=== PATIENT | female | born 1985 | race Caucasian/White ===

== ENCOUNTER 2019-06-14 19:17 | Outpatient (REF) | payer MEDICAID, SELFPAY ==
[2019-06-14 19:25] LABS: TSH (W/Ref FT4) 1.97 uIU/mL (0.36-3.74)
== END 2019-06-14 19:37 ==
LOC: NCHCN 19:17
PROVIDERS: Visit Provider Nurse Practitioner Family
DX: E05.90 Thyrotoxicosis, unspecified without thyrotoxic crisis or storm (principal)
CPT/HCPCS: 84439; 84443

== ENCOUNTER 2019-08-08 10:46 | Outpatient (CLI) | payer MEDICAID, SELFPAY ==
[2019-08-08 11:06] LABS: HCT 36.8 % (36.0-46.0); HGB 12.4 g/dL (12.0-15.5); Mean Corp. HGB Concentration 33.7 g/dL (32.0-36.0); Mean Corpuscular Hemoglobin 31.2 pg (27.0-33.0); Mean Corpuscular Volume 92.7 fL (80-95); Mean Platelet Volume 12.2 fL (8.0-11.0); Platelet Count 181 x1000/uL (130-400); RBC 3.97 m/cumm (4.00-5.20); RBC Distribution Width 12.9 % (11.7-14.6); White Blood Cell Count 6.42 k/cumm (4.4-10.8)
[2019-08-08 12:22] LABS: ALT 23 U/L (14-59); AST 19 U/L (15-37); Alkaline Phosphatase 69 U/L (46-116); Anion Gap 8.6 mmol/L (3-11); BUN 13 mg/dL (7-18); Bilirubin, Total 0.5 mg/dL (0.2-1.0); CO2 27.4 mmol/L (21.0-32.0); CREATININE 0.91 mg/dL (0.55-1.02); Calcium 8.7 mg/dL (8.5-10.1); Chloride 103 mmol/L (98-107); Glucose 90 mg/dL (74-106); Potassium 4.1 mmol/L (3.5-5.1); Sodium 139 mmol/L (136-145); TSH (W/Ref FT4) 2.85 uIU/mL (0.36-3.74); Total Protein 7.5 g/dL (6.4-8.2)
[2019-08-09 09:47] LABS: Thyroglobulin Antibody <15 U/mL (<=60); Thyroperoxidase Antibody 760 U/mL (<=60)
== END 2019-08-08 11:06 ==
PROVIDERS: PCP Nurse Practitioner Family; Visit Provider Obstetrics & Gynecology Gynecology
DX: Z34.91 Encounter for supervision of normal pregnancy, unspecified, first trimester (principal); E05.00 Thyrotoxicosis with diffuse goiter without thyrotoxic crisis or storm
CPT/HCPCS: 36415; 80053; 85027; 86376; 84443

== ENCOUNTER 2019-09-11 01:45 | Outpatient (CLI) | payer MEDICAID, SELFPAY ==
[2019-09-11 14:21] LABS: Kit/Specimen SENT
[2019-09-11 15:49] LABS: FREE T4 1.07 ng/dL (0.76-1.46); TSH 1.35 uIU/mL (0.36-3.74)
[2019-09-11 17:57] LABS: *AMPHETAMINES SCREEN URINE Negative (Negative); *BARBITURATES SCREEN URINE Negative (Negative); *BENZODIAZEPINES SCREEN URINE Negative (Negative); Cannabinoids THC Negative (Negative); Cocaine Screen,Urine Negative (Negative); METHADONE URINE SCREEN Negative (Negative); OPIATES URINE SCREEN Negative (Negative)
[2019-09-11 18:41] LABS: Tricyclic Antidepressants Negative (Negative)
[2019-09-17 16:23] LABS: Result Summary NEGATIVE; Specimen WB Whole Blood
== END 2019-09-11 02:05 ==
PROVIDERS: Advanced Practice Midwife; PCP Nurse Practitioner Family; Visit Provider Obstetrics & Gynecology
DX: Z34.91 Encounter for supervision of normal pregnancy, unspecified, first trimester (principal); Z36.89 Encounter for other specified antenatal screening; E05.00 Thyrotoxicosis with diffuse goiter without thyrotoxic crisis or storm
CPT/HCPCS: 36415; 80307; 81220; 84439; 84443; 87086

== ENCOUNTER 2019-09-25 15:52 | Outpatient (CLI) | payer MEDICAID, SELFPAY ==
[2019-09-27 14:16] LABS: Chlamydia Result Negative (Negative); GC Result Negative (Negative)
== END 2019-09-25 16:12 ==
LOC: LBN 15:53 → LBO 15:54
PROVIDERS: PCP Nurse Practitioner Family; Visit Provider Advanced Practice Midwife
DX: Z34.91 Encounter for supervision of normal pregnancy, unspecified, first trimester (principal); Z11.3 Encounter for screening for infections with a predominantly sexual mode of transmission; Z36.89 Encounter for other specified antenatal screening
CPT/HCPCS: 86787; 86803; 86900; 86901; 87340; 87389; 87491; 87591; 86762; 86780

== ENCOUNTER 2019-10-02 03:20 | Outpatient (CLI) | payer MEDICAID, SELFPAY ==
[2019-10-02 14:38] LABS: Kit/Specimen SENT
[2019-10-03 09:54] LABS: Hepatitis B Surface Ag Negative (Negative)
[2019-10-03 10:01] LABS: HIV-1/2 Ag & Ab Screen Negative (Negative)
[2019-10-03 10:07] LABS: Hepatitis C Ab w Rflx HCV PCR Negative (Negative)
[2019-10-03 10:39] LABS: Rubella IgG Ab (UVM) Positive (See Note); Varicella IgG Antibody Positive (See Note)
[2019-10-04 10:24] LABS: Syphilis Total Ab w/Reflex Nonreactive (Nonreactive)
== END 2019-10-02 03:40 ==
PROVIDERS: PCP Nurse Practitioner Family; Visit Provider Advanced Practice Midwife
DX: Z34.91 Encounter for supervision of normal pregnancy, unspecified, first trimester (principal); Z11.4 Encounter for screening for human immunodeficiency virus [HIV]; Z11.59 Encounter for screening for other viral diseases
CPT/HCPCS: 36415; 86787; 86803; 86850; 86900; 86901; 87340; 87389; 86762; 86780

== ENCOUNTER 2019-10-28 03:18 | Outpatient (CLI) | payer MEDICAID, SELFPAY ==
[2019-10-28 14:14] LABS: FREE T4 1.13 ng/dL (0.76-1.46)
== END 2019-10-28 03:38 ==
PROVIDERS: PCP Nurse Practitioner Family; Visit Provider Advanced Practice Midwife
DX: E05.00 Thyrotoxicosis with diffuse goiter without thyrotoxic crisis or storm (principal)
CPT/HCPCS: 36415; 84439; 84443

== ENCOUNTER 2019-12-23 01:59 | Outpatient (CLI) | payer MEDICAID, SELFPAY | END 2019-12-23 02:19 | PROVIDERS: PCP Nurse Practitioner Family; Visit Provider Advanced Practice Midwife | DX: E05.00 Thyrotoxicosis with diffuse goiter without thyrotoxic crisis or storm (principal) | CPT/HCPCS: 36415; 84443 ==

== ENCOUNTER 2020-01-23 04:21 | Outpatient (CLI) | payer MEDICAID, SELFPAY ==
[2020-01-23 16:47] LABS: HCT 33.2 % (36.0-46.0); HGB 11.4 g/dL (11.2-15.7); MCH 32.1 pg (27.0-33.0); MCHC 34.3 % (32.0-36.0); MCV 93.5 fL (80-95); MPV 12.6 fL (8.0-11.0); Platelet Count 150 10^3/uL (130-400); RBC 3.55 10^6/uL (3.93-5.22); RDW 12.7 % (11.7-14.6); RDW-SD 43.2 fL; WBC 8.52 10^3/uL (4.4-10.8)
[2020-01-23 18:43] LABS: FREE T4 0.98 ng/dL (0.76-1.46); TSH 0.97 uIU/mL (0.36-3.74)
[2020-01-23 18:54] LABS: T4 14.7 ug/mL (4.7-13.3)
[2020-01-24 16:46] LABS: T3, Total 180 ng/dL (97-169)
[2020-01-29 16:22] LABS: Thyroid Stimulating Immunoglob <1.0 TSI index (<=1.3)
== END 2020-01-23 04:41 ==
PROVIDERS: Internal Medicine Endocrinology, Diabetes & Metabolism; PCP Nurse Practitioner Family; Visit Provider Advanced Practice Midwife
DX: O99.283 Endocrine, nutritional and metabolic diseases complicating pregnancy, third trimester (principal); E05.00 Thyrotoxicosis with diffuse goiter without thyrotoxic crisis or storm; O09.523 Supervision of elderly multigravida, third trimester
CPT/HCPCS: 36415; 85027; 84436; 84439; 84443; 84445; 84480

== ENCOUNTER 2020-02-05 03:49 | Outpatient (CLI) | payer MEDICAID, SELFPAY ==
[2020-02-05 11:42] LABS: Glucose,1 Hr (Glucola) 75 mg/dL (80-140)
== END 2020-02-05 04:09 ==
PROVIDERS: Advanced Practice Midwife; PCP Nurse Practitioner Family; Visit Provider Advanced Practice Midwife
DX: Z34.90 Encounter for supervision of normal pregnancy, unspecified, unspecified trimester (principal)
CPT/HCPCS: 36415; 82950

== ENCOUNTER 2020-02-14 02:01 | Outpatient (CLI) | payer MEDICAID, SELFPAY ==
[2020-02-14 18:09] LABS: FREE T4 1.11 ng/dL (0.76-1.46); TSH 1.13 uIU/mL (0.36-3.74)
== END 2020-02-14 02:21 ==
PROVIDERS: Advanced Practice Midwife; PCP Nurse Practitioner Family; Visit Provider Internal Medicine Endocrinology, Diabetes & Metabolism
DX: E05.00 Thyrotoxicosis with diffuse goiter without thyrotoxic crisis or storm (principal)
CPT/HCPCS: 36415; 84439; 84443

== ENCOUNTER 2020-02-21 04:47 | Outpatient (CLI) | payer MEDICAID, SELFPAY ==
--- NOTE | 2020-02-21 08:15 | DI.US_ITS ---
EXAM: US OB VIVEK WEIGHT CLINICAL HISTORY: growth, assess for appropriate neck flexion,graves disease. TECHNIQUE: Transabdominal obstetrical ultrasound performed. COMPARISON: No exams were available for comparison FINDINGS:: Number of fetuses: One. position: Noel breech Placental location: Anterior. No evidence of previa. BIOMETRIC DATA: BPD: 83 mm = 33+3 weeks HC: 302 mm = 33+4 weeks AC: 282mm = 32+1 weeks FL: 61 mm = 31+4 weeks EFW: 1929 Gms = 33% Composite Age: 30 2+5 weeks EDC: 12 April 2020 Heart Rate: 137BPM Amniotic fluid index: 14.1 cm. Amount of fluid is within normal limits. Normal neck flexion is noted. IMPRESSION: size and weight are within the expected range. Appropriate neck flexion is noted. DATA REPOSITORY:
== END 2020-02-21 05:07 ==
PROVIDERS: PCP Nurse Practitioner Family; Visit Provider Advanced Practice Midwife
DX: E05.00 Thyrotoxicosis with diffuse goiter without thyrotoxic crisis or storm (principal); Z34.93 Encounter for supervision of normal pregnancy, unspecified, third trimester
CPT/HCPCS: 76816

== ENCOUNTER 2020-02-28 02:28 | Outpatient (CLI) | payer MEDICAID, SELFPAY ==
[2020-02-28 17:26] LABS: FREE T4 1.06 ng/dL (0.76-1.46); TSH 1.32 uIU/mL (0.36-3.74)
== END 2020-02-28 02:48 ==
PROVIDERS: PCP Nurse Practitioner Family; Visit Provider Internal Medicine Endocrinology, Diabetes & Metabolism
DX: E05.00 Thyrotoxicosis with diffuse goiter without thyrotoxic crisis or storm (principal)
CPT/HCPCS: 36415; 84439; 84443

== ENCOUNTER 2020-03-18 02:45 | Outpatient (CLI) | payer MEDICAID, SELFPAY ==
--- NOTE | 2020-03-18 07:45 | DI.US_ITS ---
EXAM: US OB VIVEK WEIGHT CLINICAL HISTORY: serial growth r/o goiter of neck r/t graveS DISEASE TECHNIQUE: Ultrasound performed using standard protocol. COMPARISON: US US OB VIVEK WEIGHT from 02/21/2020 FINDINGS: Ob ultrasound was performed utilizing 3rd trimester protocol. The placenta is anterior with no evide nce of placenta previa. Fetus is in breech presentation. biometry is consistent with gestational age of 35 weeks 2 days and EDC of April 20. The estimated weight is 2577 grams which is at the 23rd percentile for predicted gestational ag e. heart rate is 139 BPM. There is visually a normal quantity of amniotic fluid and the VIVEK is 9. IMPRESSION: DATA REPOSITORY:
== END 2020-03-18 03:05 ==
PROVIDERS: PCP Nurse Practitioner Family; Visit Provider Advanced Practice Midwife
DX: Z34.93 Encounter for supervision of normal pregnancy, unspecified, third trimester (principal)
CPT/HCPCS: 76816

== ENCOUNTER 2020-03-18 20:02 | Outpatient (REF) | payer MEDICAID, SELFPAY ==
[2020-03-18 20:33] LABS: *AMPHETAMINES SCREEN URINE Negative (Negative); *BARBITURATES SCREEN URINE Negative (Negative); *BENZODIAZEPINES SCREEN URINE Negative (Negative); Cannabinoids THC Negative (Negative); Cocaine Screen,Urine Negative (Negative); METHADONE URINE SCREEN Negative (Negative); OPIATES URINE SCREEN Negative (Negative)
[2020-03-18 20:34] LABS: Tricyclic Antidepressants Negative (Negative)
[2020-03-24 08:27] LABS: Buprenorphine Negative; Norbuprenorphine Negative
== END 2020-03-18 20:22 ==
LOC: LBN 20:02
PROVIDERS: PCP Nurse Practitioner Family; Visit Provider Advanced Practice Midwife
DX: Z34.93 Encounter for supervision of normal pregnancy, unspecified, third trimester (principal)
CPT/HCPCS: 80307; 87081

== ENCOUNTER 2020-03-25 03:06 | Outpatient (CLI) | payer MEDICAID, SELFPAY ==
[2020-03-25 15:51] LABS: FREE T4 0.95 ng/dL (0.76-1.46); TSH 1.72 uIU/mL (0.36-3.74)
== END 2020-03-25 03:26 ==
PROVIDERS: PCP Nurse Practitioner Family
DX: E05.00 Thyrotoxicosis with diffuse goiter without thyrotoxic crisis or storm (principal)
CPT/HCPCS: 36415; 84439; 84443

== ENCOUNTER 2020-04-07 11:00 | Observation (INO) | payer MEDICAID, SELFPAY ==
--- NOTE | 2020-04-02 12:26 | HPE_ITS ---
Date of service: 04/02/20 Time of Service: 12:27 Assessment and Plan Assessment and plan (1) : Status: Acute (2) Graves' disease: Status: Chronic (3) Breech presentation of fetus: Status: Acute Assessment and plan: Patient is a 6 para 3 with 2 previous spontaneous miscarriages. She has a known enrique breech presentation. Risk benefits and alternatives of external cephalic version including risk of distress or bradycardia need for emergent versus primary breech delivery at term in spontaneous labor versus primary section for breech presentation were all explained to the patient full informed consent was obtained for attempt at external cephalic version. She will present to the center on April 07 while she will have IV started, laboratory studies, and terbutaline given for uterine relaxation. Attempted external cephalic version was performed at that time. If she were to convert spontaneously prior to, no version will be necessary. If version is successful, she will be allowed to progress into spontaneous labor. History of Present Illness History of Present Illness Chief Complaint: Breech presentation Narrative: Patient is a 34-year-old female with 3 previous vaginal deliveries who has had care at [facility] with the contracting executive group. She has a known breech presentation. She has been counseled extensively on breech presentation, possibility of external cephalic version, vaginal breech delivery, and section. Patient opts at this point for attempted external cephalic version. She has had days to weeks to ponder her options and opportunities and ask questions regarding procedure, complications, and risks. Patient understands that preference would be for conversion to vertex presentation and delivery on the center. She is, however a candidate for vaginal breech delivery, though this would need to be attempted in the OR with a double set up in case of obstetric complication. For the patient this is a suboptimal delivery scenario. Review of Systems All systems reviewed & are unremarkable except as noted in HPI and below Constitutional Constitutional: Reports system reviewed and no additional complaints, except as documented Cardiovascular Cardiovascular: Reports system reviewed and no additional complaints, except as documented Respiratory Respiratory: Reports system reviewed and no additional complaints, except as documented Gastrointestinal Gastrointestinal: Reports system reviewed and no additional complaints, except as documented Genitourinary Genitourinary: Reports system reviewed and no additional complaints, except as documented and Reports as per HPI Musculoskeletal Musculoskeletal: Reports system reviewed and no additional complaints, except as documented Integumentary/Breasts Skin/Breast: Reports system reviewed and no additional complaints, except as documented Neurologic Neurologic: Reports system reviewed and no additional complaints, except as documented Psychiatric Psychiatric: Reports system reviewed and no additional complaints, except as documented [facility] Medical History (Updated 03/18/20 @ 15:17 by Bettina Henriquez) 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 2015. Rx with Methimazole 5mg/day.(Usual dose 30mg/day) TSH ok with current dose. Previous thyroid u/s: no cancerous nodules. 08/08/19. Change to PTU 50mg/day (usual dose 100mg/TID) Recheck TSH in 4w. Antibody testing: Lactose intolerance Rotator cuff arthropathy of right shoulder injury and PT 05/2019 Surgical History (Updated 08/08/19 @ 20:57 by Lali Hu MD) History of ankle surgery 2009 Hx of tonsillectomy 1989 Family History (Updated 09/11/19 @ 15:12 by Lea Law CNM) Father No problems noted. Mother Diabetes pre-diabetic Hypertension Maternal Grandmother Diabetes Type 2 Sister Arrhythmia heart ablation Aunt Breast cancer Pos. BRCA Several others in father's family pos for BRCA Social History (Updated 08/08/19 @ 21:01 by Lali Hu MD) Smoking/Tobacco Use Status: Former Tobacco Use Tobacco: How many years used: 3 Quit status: has quit before Smoking risk assessment performed?: Yes Drug use: Never Household members: spouse, children and other Details: Irene-Wilber, [id number] dad. 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 Date GA/Weeks # Outcome Route Wgt Sex Labor Lgth Anesthes ia Location [facility] 09/28/05 39 No Successful 7 lb 5 oz Male 28 [facility] 08/21/07 Unsuccessful 10/22/08 39 No Successful vaginal 7 lb 5 oz Male 20 [facility] 08/22/11 Unsuccessful 02/16/13 41 No Successful vaginal 6 lb 10 oz Female 8 hrs home , [place] Delivery Date: 09/28/05 Pitocin augmentation Lea Law Delivery Date: 08/21/07 ERUM Lea Law Delivery Date: 10/22/08 No notes to display Delivery Date: 08/22/11 ERUM ChavarriaLea kay Delivery Date: 02/16/13 Home , no complications Lea Law Meds Home Medications and Allergies Home Medications Medication Instructions Recorded Confirmed Type cholecalciferol (vitamin D3) 25 25 mcg PO DAILY 08/08/19 04/01/20 History mcg (1,000 unit) capsule docosahexaenoic acid 200 mg capsule mg PO 08/08/19 04/01/20 History folic acid 400 mcg tablet 0.4 mg PO DAILY 08/08/19 04/01/20 History prenat.vits,rubio,zgs-[id number]-ftbrt 1 tab PO DAILY 10/02/19 04/01/20 History Boostrix Tdap 2.5 Lf unit-8 mcg-5 0.5 ml IM ONCE #0.5 ml NS 01/23/20 Clinic Lf/0.5 mL intramuscular syringe blood builder See Rx Instructions .ROUTE 03/18/20 04/01/20 Rx .COMPLEX #60 tab Allergies Allergy/AdvReac Type Severity Reaction Status Date / Time latex Allergy Severe hives Verified 04/01/20 14:11 adhesive tape Allergy Intermediate rash Verified 04/01/20 14:11 coffee (Coffea arabica) Allergy Mild Unverified 04/01/20 14:11 carrageenan AdvReac Intermediate Unverified 04/01/20 14:11 gluten AdvReac Intermediate Verified 04/01/20 14:11 avocado AdvReac Mild Unverified 04/01/20 14:11 banana AdvReac Mild Unverified 04/01/20 14:11 marielle AdvReac Mild Unverified 04/01/20 14:11 tomato AdvReac Mild Unverified 04/01/20 14:11 dairy AdvReac Severe Uncoded 04/01/20 14:11 Exam Const General: cooperative, healthy appearing, comfortable and no acute distress Nutritional Appearance: average body habitus Orientation: alert and oriented x3 Eyes General: appearance normal, both eyes and all related structures Resp Effort & Inspection: normal respiratory effort and no audible wheezes Cardio Rate: regular rate GI Inspection: normal to inspection Palpation: soft and no guarding Other: Breech presentation by Fadi's, confirmed with U/S Skin General skin exam: no rashes or lesions noted Neuro General: patient alert and patient oriented x3 Cranial Nerves: CN's II-XI intact bilaterally Cognition: normal cognition Speech: speech normal Extrem General: no clubbing, cyanosis or edema COVID-19 Screening Have you, or household traveled for leisure in last 14 days?: NO
[2020-04-07 11:10] VITALS: TEMP 36.8
[2020-04-07 11:20] VITALS: BP 158/73; PULSE 75; RESP 18; TEMP 36.8
[2020-04-07 12:15] LABS: HCT 35.5 % (36.0-46.0); HGB 11.8 g/dL (11.2-15.7); MCH 31.6 pg (27.0-33.0); MCHC 33.2 % (32.0-36.0); MCV 95.2 fL (80-95); MPV 12.9 fL (8.0-11.0); Platelet Count 154 10^3/uL (130-400); RBC 3.73 10^6/uL (3.93-5.22); RDW-SD 47.7 fL; WBC 9.28 10^3/uL (4.4-10.8)
[2020-04-07] MEDS: Terbutaline 1 MG/ML VIAL 0.25 MG SC (12:19)
[2020-04-07 13:29] VITALS: BP 158/73; PULSE 75
--- NOTE | 2020-04-07 15:04 | PROC.BLANK_ITS ---
Date of service: 04/07/20 Time of Service: 15:04 Version Note Version Note DATE OF PROCEDURE: 04/07/20 PRE-OP DIAGNOSES: Term , unstable lie POST-OP DIAGNOSES: same PROCEDURE: Patient is a 34-year-old female who is been having care with the clinical review specialist group and [facility]. She has had 3 previous successful vaginal deliveries. She is at term. She has a known breech presentation. We have had multiple lengthy conversations regarding the potential for external cephalic version. Full informed consent was obtained after risks, benefits and alternatives of the procedure were explained to the patient. She had an IV started and received 1 dose of terbutaline for uterine relaxation. Ultrasound had been previously performed which confirmed baby in the breech to transverse position with the vertex at the right upper to mid quadrant. With ultrasound guidance and gentle upward traction of the breech from the pelvis and initially counterclockwise then, clockwise attempt at external cephalic version. Baby alternated from breech to transverse back to transverse to breech presentation without conversion to cephalic. Both patient and baby tolerated the attempts at external cephalic version without difficulty. Nonstress test performed prior to and after procedure for both reassuring category 1 strip. In light of the failed external cephalic version attempt, approximately 30 minutes of time was spent discussing the fact that patient has an unstable lie and is not a good vaginal delivery candidate at this present time. We also had a long conversation regarding section, its risks, benefits, and alternatives along with the appropriate anesthesia necessary. Patient is somewhat overwhelmed by these conversations and requests more time to consider her options. We did discuss the fact that with an unstable lie spontaneous rupture of membranes could be problematic and lead to cord prolapse. Patient and her partner do understand these risks. She will be seen back on the center on Monday for further conversation she does understand that if she is having labor symptoms she should present to the center sooner rather than waiting at home. SURGEON: Pauline Damon Assisting Surgeon: Lali Hu Complications: None Patient was transported to: no change Patient's condition: stable Procedure Description: As above Pre/Post Procedure NST Pre-Procedure NST Time on Monitor: 72 Patient States Movement: Present FHR Baseline: 135 Variability: Moderate 6-25 bpm Decelerations: None NST Results: Reactive Post Procedure NST Time on Monitor: 64 Patient States Movement: Present Variability: Moderate 6-25 bpm Decelerations: None NST Results: Reactive
== END 2020-04-07 15:02 | disposition home or self-care (01) ==
PROVIDERS: Admitting Provider Obstetrics & Gynecology; PCP Nurse Practitioner Family; Visit Provider Obstetrics & Gynecology
DX: O32.1XX0 Maternal care for breech presentation, not applicable or unspecified (principal); O09.523 Supervision of elderly multigravida, third trimester; Z3A.39 39 weeks gestation of pregnancy
CPT/HCPCS: 36415; 59025; 59412; 85027; 86850; 86900; 86901; 96372; 99222; G0378

== ENCOUNTER 2020-04-08 22:43 | Inpatient (IN) | payer MEDICAID, SELFPAY ==
[2020-04-08] VITALS (7 sets, daily range): BP systolic 112–125; BP diastolic 62–87; PULSE 72–99; RESP 18–22; TEMP 36.6
--- NOTE | 2020-04-08 23:15 | W.OBDELIVERY ---
Date of service: 04/08/20 Time of Service: 23:15 OB Labor/ Delivery Information Baby A Delivery Delivery Method: Spontaneaous Presentation: Noel Breech Cord Description-Baby A: Nuchal Cord (x1) Amniotic Fluid: Clear Delivery Outcome: Liveborn Providers Doctor: Charbel Ozuna Nurse Tooling Engineering Tech: Lea Law Nurse: Nimisha Juárez Nurse: Mayda Pereira Labor/Delivery Information Number of Babies in Womb: 1 Steroids Given: None Reason Steroids Not Administered: N/A Group Beta Strep: Negative Antibiotics Administered: No Maternal Complications: Precipitous Labor(<3hrs) Shoulder Dystocia: No Stages of Labor Onset of Labor Date: 04/08/20 Onset of Labor Time: 22:00 Complete Dilatation Date: 04/08/20 Complete Dilatation Time: 22:40 Labor - Stage 1 Duration: 0 minutes ROM Baby A: 04/08/20 ROM Baby A: 22:50 ROM Total Time- Baby A: [id number] Infant Delivery Date-Baby A: 04/08/20 Infant Delivery Time-Baby A: 22:55 Labor Stage 2 Duration: 15 minutes Placenta Delivery Date-Baby A: 04/08/20 Total Length of Labor-Baby A: 55 minutes Placenta Cultured: No Placenta Status: Delivered Baby A Gender: Male Gestational Status: Term (39-41.6 wks) Gestational Age in Weeks/Days: 39 Weeks and 1 Days
--- NOTE | 2020-04-08 23:16 | HPE_ITS ---
Date of service: 04/08/20 Time of Service: 23:16 Assessment and Plan Assessment and plan (1) Breech presentation of fetus: Status: Acute Assessment and plan: Patient presented in active labor and had an uncomplicated delivery of a enrique breech male. Please refer to delivery note for details. OB-HPI Labor/Delivery History of Present Illness Reason for Visit: LABOR Chief Complaint: Uterine Contractions. CONRAD Calculator Estimated Delivery Date Method Current WG Current Estimate 04/14/20 LMP (Certain) 39w 1d Other Estimates 04/10/20 Ultrasound #1 39w 5d Comments: Patient presented in active labor. On my initial examination the cervix was completed dilated with intact membranes. Physical examination and ultrasound confirmed enrique breech presentation. Amniotomy was performed and delivery of the was accomplished. Please refer to delivery note. History of Present Expected Delivery Route/Plan - CNM FOB: Wilber Villa (fourth baby together) GBS Negative Specific Issues/Plan 1. Graves disease. On PTU. Level 2 US @ 18 wk w/MFM consult done 11/20/19; level 2 sono =nml 1a, TSH, T4 drawn 09/11/19, levels are nml with PTU 50 mg BID 1b. Discussed in Provider meeting 09/16: no need to repeat TPO level. Ref to [facility] for consult, order placed. 1c.Referral to [facility] endocrinology to establish care - per patient request 1d. TSH 1.10 and T4 1.13 - no change in dosage recommended per Dr. Hu. 2nd trimester (20 wks) TSH is 1.1 1e. [facility] check TSH q2-3 months, draw TSI in 3rd trimester, plan sono for growth at 30 wks. 1f. If TSI is 5x above nml, monitor fetus for tachycardia and IUGR (per MFM, see notes) 1g. 01/23/20: TSI .97, Free thyroxine .98, T4 14.7 faxed to [facility] Endo. Reviewed w/ Dr. Hu w/o f/u here let endo decide f/u if any. al 1h. TSH/free T4 drawn 02/13, results nml = TSH 1.13, free T4 1.11 2. AMA - Desires Cf and [place] testing - order was placed and prematurely at 9 weeks, repeat after 10 weeks 2a. Offered [place] test @ 11 wk visit. Result: low prob x3 2b. CF carrier screen negative 3. Rotator cuff injury- had one PT visit before Covid-19, encouraged to continue via telehealth or in person 4. History of symphysis pubis separation during 3rd , consider PT for that as well. 4a. right hip pain - sees a chiropractor and referred to PT 10/29 5. anxiety after third 6. Anemia identified at 36 wks, start Blood Builder 2 tabs/day 7. Breech presentation identified at 36 wks, discussed with Dr.'s Ozuna and Nelson, will offer ECV Informed Consent Informed Consent: Other (Breech vaginal delivery - The patient had been counseled on risks related to breech delivery including head entrapment, trauma such as humeral fracture, and increased risk for neurologic injury. All questions were answered and verbal consent was obtained. ) Review of Systems All systems reviewed & are unremarkable except as noted in HPI and below PFSH Medical History (Updated 03/18/20 @ 15:17 by Bettina Henriquez) 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 2016. Rx with Methimazole 5mg/day.(Usual dose 30mg/day) TSH ok with current dose. Previous thyroid u/s: no cancerous nodules. 08/08/19. Change to PTU 50mg/day (usual dose 100mg/TID) Recheck TSH in 4w. Antibody testing: Lactose intolerance Rotator cuff arthropathy of right shoulder injury and PT 05/2019 Surgical History (Updated 08/08/19 @ 20:57 by Lali Hu MD) History of ankle surgery 2009 Hx of tonsillectomy 1989 Family History (Updated 09/11/19 @ 15:12 by Lea Law CNM) Father No problems noted. Mother Diabetes pre-diabetic Hypertension Maternal Grandmother Diabetes Type 2 Sister Arrhythmia heart ablation Aunt Breast cancer Pos. BRCA Several others in father's family pos for BRCA Social History (Updated 08/08/19 @ 21:01 by Lali Hu MD) Smoking/Tobacco Use Status: Former Tobacco Use Tobacco: How many years used: 3 Quit status: has quit before Smoking risk assessment performed?: Yes Alcohol Intake: never Drug use: Never Substance use type: does not use Household members: spouse, children and other Details: H-Wilber, [id number] dad. 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 Date GA/Weeks # Outcome Route Wgt Sex Labor Lgth Anesthes ia Location Prov Complic 09/28/05 39 No Successful 7 lb 5 oz Male 28 [facility] 08/21/07 Unsuccessful 10/22/08 39 No Successful vaginal 7 lb 5 oz Male 20 [facility] 08/22/11 Unsuccessful 02/16/13 41 No Successful vaginal 6 lb 10 oz Female 8 hrs home , [place] Delivery Date: 09/28/05 Pitocin augmentation Lea Law Delivery Date: 08/21/07 Lea Ennis Delivery Date: 10/22/08 No notes to display Delivery Date: 08/22/11 Lea Ennis Delivery Date: 02/16/13 Home , no complications Lea Law Meds Home Medications and Allergies Home Medications Medication Instructions Recorded Confirmed Type cholecalciferol (vitamin D3) 25 25 mcg PO DAILY 08/08/19 04/07/20 History mcg (1,000 unit) capsule docosahexaenoic acid 200 mg capsule 200 mg PO DAILY 08/08/19 04/07/20 History folic acid 400 mcg tablet 0.4 mg PO DAILY 08/08/19 04/07/20 History prenat.vits,rubio,gsk-[id number]-[id number] 1 tab PO DAILY 10/02/19 04/07/20 History Boostrix Tdap 2.5 Lf unit-8 mcg-5 0.5 ml IM ONCE #0.5 ml NS 01/23/20 04/07/20 Clinic Lf/0.5 mL intramuscular syringe blood builder See Rx Instructions .ROUTE 03/18/20 04/07/20 Rx .COMPLEX #60 tab Allergies Allergy/AdvReac Type Severity Reaction Status Date / Time latex Allergy Severe hives Verified 04/01/20 14:11 adhesive tape Allergy Intermediate rash Verified 04/01/20 14:11 coffee (Coffea arabica) Allergy Mild Unverified 04/01/20 14:11 carrageenan AdvReac Intermediate Unverified 04/01/20 14:11 gluten AdvReac Intermediate Verified 04/01/20 14:11 avocado AdvReac Mild Unverified 04/01/20 14:11 banana AdvReac Mild Unverified 04/01/20 14:11 marielle AdvReac Mild Unverified 04/01/20 14:11 tomato AdvReac Mild Unverified 04/01/20 14:11 dairy AdvReac Severe Uncoded 04/01/20 14:11 Exam Detailed Labor and Delivery Exam Weaver Score: Cervical Points Exam 0 1 2 3 Dilation Closed 1-2cm 3-4 cm 5-6cm Effacement 0-30% 40-50% 60-70% 80% Consistency Firm Medium Soft Station -3 -2 -1,0 +1,+2 Position Posterior Mid Anterior Fetus A Date of Membrane Rupture: 04/08/20 Time of Membrane Rupture: 22:50 Exam Exam: Normal Results Results Group Beta Strep: Negative Risk Assessment Risk for Shoulder Dystocia Historical/Initial OB: NEGATIVE FOR: Pelvic Abnormality, Pre- BMI>30, Previous Shoulder Dystocia or Previous Macrosomia Delivery Plan @ 36wks: spont labor & . Pt hoping breech fetus will turn without ECV which she declines. Risk for Pre-Eclampsia Yes, if one or more: NEGATIVE FOR: Hx Pre-E/Gest HTN, Chronic HTN, Multiple Gestation, Pre-gestational DM, Renal Disease, Systemic Lupus or APA Syndrome Yes, if 2 or more: NEGATIVE FOR: Nulliparity, Age>= 35 yrs, >10yr btwn pregnancies, BMI>30, ethinicty, Mother/Sister w/ Pre-E or Previous IUGR Risk for Post- Hemorrhage Initial: NEGATIVE FOR: Multiple Gestation, Previous PPH, Known Clotting Deficiency, Grand Multiparity or Anticoagulation Interventions: hgb 9.8 at 36 wks, will begin Blood Builder tabs 2x/day Risks Reviewed Risks Reviewed Upon Admission: Yes
[2020-04-09] VITALS (10 sets, daily range): BP systolic 102–124; BP diastolic 58–76; PULSE 66–88; RESP 14–20; TEMP 36.6–36.9; O2SAT 99
[2020-04-09] MEDS: Ibuprofen 600 MG TAB (02:08)
--- NOTE | 2020-04-09 10:33 | W.PM.OBNL1 ---
Date of service: 04/08/20 Time of Service: 22:00 Informed Consent Informed Consent: Other (Breech vaginal delivery - The patient had been counseled on risks related to breech delivery including head entrapment, trauma such as humeral fracture, and increased risk for neurologic injury. All questions were answered and verbal consent was obtained. 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 See H and P per Dr. Ozuna. Objective Temp Pulse Resp BP 98 F 76 20 121/76 04/09/20 02:50 04/09/20 03:15 04/09/20 03:15 04/09/20 03:15 Laboratory Results WBC Cancelled 04/08/20 22:43 RBC Cancelled 04/08/20 22:43 Hgb Cancelled 04/08/20 22:43 Hct Cancelled 04/08/20 22:43 MCV Cancelled 04/08/20 22:43 MCH Cancelled 04/08/20 22:43 MCHC Cancelled 04/08/20 22:43 RDW Cancelled 04/08/20 22:43 Plt Count Cancelled 04/08/20 22:43 MPV Cancelled 04/08/20 22:43 Patient ABO/Rh Cancelled 04/08/20 22:43 Vital Signs Reviewed: Yes Subjective Interval history since last seen: Anita called at 2043 and reported stronger contractions and discomfort. She arrived and reported severe discomfort. She declined to get into bed to allow the RN to check her cervix. There were repetitive variable decellerations from a baseline of 120s down to 90s with contractions. I was called to come and evaluate her. I ordered and I.V. of L.R. which was placed while I was en route. Upon my arrival, she was in room 302, standing and leaning against the stretcher. She was moved to the bed on hands and knees and I performed SVE and found that she was 9 cms dilated with a bulging bag of water and breech presentation. The heart rate pattern showed persistent variable decellerations with contractions and Anita had an urge to bear down. Dr. Ozuna was called to attend the impending breech delivery and she was moved to room 304 where she resumed the hands and knees position. As she was getting into bed, Dr. Ozuna arrived and spoke with Anita and provided informed consent regarding breech delivery risks. Results Hemoglobin/Hematocrit: Hgb Cancelled 04/08/20 22:43 Hct Cancelled 04/08/20 22:43
[2020-04-09] MEDS: Ibuprofen 600 MG TAB PO (12:01)
[2020-04-09 16:11] LABS: COVID-19 RT-PCR UVMMC Result Negative (Negative)
[2020-04-09 17:01] LABS: HCT 33.3 % (36.0-46.0); HGB 11.1 g/dL (11.2-15.7); MCHC 33.3 % (32.0-36.0); MPV 12.9 fL (8.0-11.0); Platelet Count 156 10^3/uL (130-400); RBC 3.47 10^6/uL (3.93-5.22); RDW 14.5 % (11.7-14.6); RDW-SD 49.1 fL; WBC 11.24 10^3/uL (4.4-10.8)
[2020-04-09 17:50] LABS: FREE T4 1.02 ng/dL (0.76-1.46); TSH 1.85 uIU/mL (0.36-3.74)
[2020-04-09] MEDS: Acetaminophen 325 MG TAB 650 MG PO (18:45)
[2020-04-09] MEDS: Hamamelis Leaf/Glycerin 100 EACH BOX (18:47)
[2020-04-10 00:22] VITALS: BP 108/86; PULSE 74; RESP 16; TEMP 36.8; O2SAT 95
--- NOTE | 2020-04-10 08:30 | OBPPV_ITS ---
Date of service: 04/10/20 Time of Service: 08:31 Assessment and Plan Assessment and plan (1) Routine follow-up: Status: Acute Assessment and plan: A: PPD#2, nml PP recovery, seems satisfied with experience P: Will discharge to home today F/up in 2 weeks and 6 wks Plans NFP for her BCM Will review written instructions and give to pt Instruct pt to call Endo at [facility] tto notify delivered status Subjective Subjective Patient comments: No complaints, Pain well controlled, Tolerating diet, Flatus present and Bowel Movement Patient's Mood: happy [place] baby status: Nursing well, Rooming in and Strong Bonding Observed feeding status: Exclusively breast feeding Exam Physical Exam Vital signs: Temp Pulse Resp BP Pulse Ox 98.2 F 74 16 108/86 95 04/10/20 00:22 04/10/20 00:22 04/10/20 00:22 04/10/20 00:22 04/10/20 00:22 Vital Signs Reviewed: Yes Constitutional Constitutional: no acute distress, average body habitus and cooperative HEENT Exam HEENT Exam: Normal Neck Exam Neck Exam: Normal Breast Exam Bilateral: Breast Exam: Normal and Soft Nipple Exam: Normal Respiratory Exam Respiratory Exam: Normal Cardiovascular Exam Cardiovascular Exam: Normal Abdominal Exam Abdomen: Other (soft and nontender) Fundal Exam Fundus: Below Umbilicus and Firm Exam Perineum: Intact Extremities Exam Extremity Exam: Normal Skin Exam Skin Exam: Normal Psychiatric Exam Psychiatric Exam: Normal Results Hemoglobin/Hematocrit: Hgb 11.1 g/dL (11.2-15.7) L 04/09/20 16:45 Hct 33.3 % (36.0-46.0) L 04/09/20 16:45 Abnormal Lab Findings: Abnormal Labs 04/09/20 16:45 WBC 11.24 H RBC 3.47 L Hgb 11.1 L Hct 33.3 L MCV 96.0 H MPV 12.9 H
[2020-04-10 09:00] VITALS: BP 116/64; PULSE 87; RESP 20; TEMP 36.7; O2SAT 99
--- NOTE | 2020-04-10 13:41 | DSE_ITS ---
Date of service: 04/10/20 Time of Service: 13:41 DS: Diagnosis Discharge Diagnosis (1) Routine follow-up: Status: Acute Discharge Plan Disposition Patient Disposition: HOME Condition: Good Discharge Details Reason For Visit: LABOR Admit Date/Time: 04/08/20 22:43 Admit Provider: Charbel Ozuna Attending Provider: Charbel Ozuna Primary Care Provider: Michael Dee Hospital Course Hospital Course: breech presentation within 1 hour of arrival to center, nml course, discharge at 2 days PP Home Meds and New Rx's Prescriptions: No Action blood builder tablet See Rx Instructions .ROUTE .COMPLEX Qty: 60 RF: 0 folic acid 400 mcg tablet 0.4 mg PO DAILY RF: 0 DHA 200 mg capsule 200 mg PO DAILY RF: 0 cholecalciferol (vitamin D3) [Vitamin D3] 25 mcg (1,000 unit) capsule 25 mcg PO DAILY RF: 0 prenat.vits,rubio,lst-xeae-ybbhd Tablet 1 tab PO DAILY RF: 0 Boostrix Tdap 2.5-8-5 Lf-mcg-Lf/0.5mL syringe 0.5 ml IM ONCE Qty: 0.5 RF: 0 Discharge Instructions Additional Instructions: Please make an appointment for care with your oil processing technician at 2 and 6 weeks . Stand Alone Forms: BC Instructions, NB Instructions, BC Post Vaginal Deliver Activity:: Activity as Tolerated Equipment/Supplies:: No Equipment Needed Diet:: Normal Diet Discharge Orders Discharge Orders: Discharge Order (Routine); Ordered 04/10/20 Ordered By: Bettina Henriquez OB:DS Summary Summary Vaginal Delivery Method: Spontaneaous Episiotomy Description: None Laceration Description: None Laceration Extension: N/A Contraception Discussed Contraception Discussed: Yes Contraceptive Plan: Not planning to use (uses natural family planning), [place] Gender-Baby A: Male weight: 5 lb 2.047 oz Status at Discharge Functional status at discharge: independent ambulation Overall status at discharge: patient is progressing back to baseline Mental Status: mental status grossly normal Speech and Movement: speech and movement normal and speech clear Mood: congruent mood Affect: normal affect Exam Physical Exam Vital signs: Temp Pulse Resp BP Pulse Ox 98.1 F 87 20 116/64 99 04/10/20 09:00 04/10/20 09:00 04/10/20 09:00 04/10/20 09:00 04/10/20 09:00 Constitutional Constitutional: no acute distress, average body habitus and cooperative HEENT Exam HEENT Exam: Normal Neck Exam Neck Exam: Normal Breast Exam Bilateral: Breast Exam: Normal and Soft Respiratory Exam Respiratory Exam: Normal Cardiovascular Exam Cardiovascular Exam: Normal Abdominal Exam Abdomen: Other (soft and nontender) Fundal Exam Fundus: Below Umbilicus and Firm Exam Perineum: Intact Extremities Exam Extremity Exam: Normal Skin Exam Skin Exam: Normal Psychiatric Exam Psychiatric Exam: Normal [facility] Medical History (Updated 04/10/20 @ 08:34 by Bettina Henriquez) 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 2015. Rx with Methimazole 5mg/day.(Usual dose 30mg/day) TSH ok with current dose. Previous thyroid u/s: no cancerous nodules. 08/08/19. Change to PTU 50mg/day (usual dose 100mg/TID) Recheck TSH in 4w. Antibody testing: Lactose intolerance Rotator cuff arthropathy of right shoulder injury and PT 05/2019 Surgical History (Updated 08/08/19 @ 20:57 by Lali Hu MD) History of ankle surgery 2009 Hx of tonsillectomy 1989 Family History (Updated 09/11/19 @ 15:12 by Lea Law CNM) Father No problems noted. Mother Diabetes pre-diabetic Hypertension Maternal Grandmother Diabetes Type 2 Sister Arrhythmia heart ablation Aunt Breast cancer Pos. BRCA Several others in father's family pos for BRCA Social History (Updated 08/08/19 @ 21:01 by Lali Hu MD) Smoking/Tobacco Use Status: Former Tobacco Use Tobacco: How many years used: 3 Quit status: has quit before Smoking risk assessment performed?: Yes Alcohol Intake: never Drug use: Never Substance use type: does not use Household members: spouse, children and other Details: Irene-Wilber, [id number] dad. 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 Date GA/Weeks # Outcome Route Wgt Sex Labor Lgth Anesthes ia Location [facility] 09/28/05 39 No Successful 7 lb 5 oz Male 28 [facility] 08/21/07 Unsuccessful 10/22/08 39 No Successful vaginal 7 lb 5 oz Male 20 [facility] 08/22/11 Unsuccessful 02/16/13 41 No Successful vaginal 6 lb 10 oz Female 8 hrs home , [place] Delivery Date: 09/28/05 Pitocin augmentation Lea Law Delivery Date: 08/21/07 Lea Ennis Delivery Date: 10/22/08 No notes to display Delivery Date: 08/22/11 Lea Ennis Delivery Date: 02/16/13 Home , no complications Lea Law DS: Data Vitals/I&O Vitals and I&O: Vital Signs Temperature 98.1 F 04/10/20 09:00 Pulse 87 04/10/20 09:00 Pulse Rhythm Regular 04/10/20 09:00 Respiratory Rate 20 04/10/20 09:00 Blood Pressure 116/64 04/10/20 09:00 Blood Pressure Mean 81 04/10/20 09:00 Pulse Oximetry 99 04/10/20 09:00 Oxygen Delivery Method Room Air 04/08/20 21:21 Oxygen Flow Rate 0 04/08/20 21:21 Pain Level 0 04/10/20 09:00 Intake & Output 04/09/20 04/10/20 04/10/20 23:59 11:59 23:59 Other: Urine Color Yellow Data Completed and Pending Labs on day of discharge: Labs from last 24 hours 04/09/20 04/09/20 04/09/20 16:45 16:45 02:00 WBC 11.24 H RBC 3.47 L Hgb 11.1 L Hct 33.3 L MCV 96.0 H MCH 32.0 MCHC 33.3 RDW 14.5 Plt Count 156 MPV 12.9 H TSH 1.85 Free T4 1.02 COVID-19 PCR Negative Nasopharyn COVID-19 PCR Not Applicable Ref Test Perform Site [facility]
== END 2020-04-10 14:32 | disposition home or self-care (01) | DRG 807 ==
LOC: BCD 22:49 → OBS 22:49
PROVIDERS: Advanced Practice Midwife; Internal Medicine Endocrinology, Diabetes & Metabolism; Admitting Provider Obstetrics & Gynecology; PCP Nurse Practitioner Family; Visit Provider Obstetrics & Gynecology
DX: O32.1XX0 Maternal care for breech presentation, not applicable or unspecified (principal); Z37.0 Single live birth; O62.3 Precipitate labor; O76 Abnormality in fetal heart rate and rhythm complicating labor and delivery; O69.81X0 Labor and delivery complicated by cord around neck, without compression, not applicable or unspecified; Z3A.39 39 weeks gestation of pregnancy; O99.284 Endocrine, nutritional and metabolic diseases complicating childbirth; E05.00 Thyrotoxicosis with diffuse goiter without thyrotoxic crisis or storm; Z11.59 Encounter for screening for other viral diseases
CPT/HCPCS: 85027; 86900; 86901; U0003; 84439; 84443; J3490

== ENCOUNTER → 2020-05-14 02:23 | Outpatient (CLI) | payer MEDICAID, SELFPAY ==
[2020-05-14 12:22] LABS: FREE T4 0.97 ng/dL (0.76-1.46); TSH 1.04 uIU/mL (0.36-3.74)
[2020-05-14 19:04] LABS: T3, Total 154 ng/dL (97-169)
[2020-05-21 16:19] LABS: Thyroid Stimulating Immunoglob <1.0 TSI index (<=1.3)
== END ==
PROVIDERS: PCP Nurse Practitioner Family; Visit Provider Internal Medicine Endocrinology, Diabetes & Metabolism
DX: E05.00 Thyrotoxicosis with diffuse goiter without thyrotoxic crisis or storm (principal)
CPT/HCPCS: 36415; 84439; 84443; 84445; 84480

== ENCOUNTER 2020-07-23 04:08 | Outpatient (CLI) | payer MEDICAID, SELFPAY ==
[2020-07-23 09:36] LABS: FREE T4 0.93 ng/dL (0.76-1.46); TSH 1.04 uIU/mL (0.36-3.74)
[2020-07-23 17:34] LABS: T3, Total 146 ng/dL (97-169)
== END 2020-07-23 04:09 | disposition home or self-care (01) ==
LOC: LBO 04:09
PROVIDERS: Internal Medicine Endocrinology, Diabetes & Metabolism; PCP Nurse Practitioner Family
DX: E05.00 Thyrotoxicosis with diffuse goiter without thyrotoxic crisis or storm (principal)
CPT/HCPCS: 36415; 84439; 84443; 84480

== ENCOUNTER 2021-02-26 09:39 | Outpatient (REF) | payer MEDICAID, SELFPAY ==
[2021-02-26 14:51] LABS: TSH (W/Ref FT4) 2.27 uIU/mL (0.36-3.74)
== END 2021-02-26 09:40 | disposition home or self-care (01) ==
LOC: NCHCN 09:39
PROVIDERS: PCP Nurse Practitioner Family; Visit Provider Nurse Practitioner Family
DX: E05.90 Thyrotoxicosis, unspecified without thyrotoxic crisis or storm (principal)
CPT/HCPCS: 84443

== ENCOUNTER 2021-07-03 14:40 | Outpatient (REF) | payer MEDICAID, SELFPAY ==
[2021-07-03 15:22] LABS: HCG Quant, Pregnancy < 1 mIU/mL (1-3)
== END 2021-07-03 14:41 | disposition home or self-care (01) ==
LOC: LBN 14:40
PROVIDERS: PCP Nurse Practitioner Family; Visit Provider Nurse Practitioner Family
DX: N94.6 Dysmenorrhea, unspecified (principal)
CPT/HCPCS: 84702

== ENCOUNTER 2021-07-19 14:58 | Outpatient (REF) | payer MEDICAID, SELFPAY ==
[2021-07-19 15:45] LABS: FREE T4 0.87 ng/dL (0.76-1.46); TSH (W/Ref FT4) 1.12 uIU/mL (0.36-3.74)
[2021-07-19 22:12] LABS: T3, Total 160 ng/dL (97-169)
== END 2021-07-19 14:59 | disposition home or self-care (01) ==
LOC: NCHCN 14:58
PROVIDERS: PCP Nurse Practitioner Family; Visit Provider Nurse Practitioner Family
DX: E05.00 Thyrotoxicosis with diffuse goiter without thyrotoxic crisis or storm (principal); F41.8 Other specified anxiety disorders; Z91.89 Other specified personal risk factors, not elsewhere classified
CPT/HCPCS: 84439; 84443; 84480

== ENCOUNTER 2021-08-30 02:50 | Outpatient (CLI) | payer MEDICAID, SELFPAY ==
[2021-08-30 13:11] LABS: Iron 73 ug/dL (50-170); Total Iron Binding Capacity 421 ug/dL (250-450)
[2021-08-30 13:34] LABS: Vitamin D 25 Total 22.9 ng/mL (30-100)
[2021-08-30 13:37] LABS: Ferritin 15 ng/mL (8-252); Folate 7.4 ng/mL (8.6-20.0); Vitamin B12 618 pg/mL (193-986)
[2021-08-30 22:18] LABS: Estradiol 100 pg/mL (See Note); Progesterone 7.3 ng/mL (See Table)
[2021-08-31 12:46] LABS: EBV EA IgG Negative (Negative)
[2021-09-01 12:40] LABS: EBNA IgG Positive (Negative); EBV Interpretation (See Note); VCA IgG Positive (Negative); VCA IgM Negative (Negative)
== END 2021-08-30 02:51 | disposition home or self-care (01) ==
LOC: LBO 02:50
PROVIDERS: PCP Nurse Practitioner Family; Visit Provider Naturopath
DX: E55.9 Vitamin D deficiency, unspecified (principal); R53.83 Other fatigue; N92.6 Irregular menstruation, unspecified
CPT/HCPCS: 36415; 82306; 86663; 82607; 82670; 82728; 82746; 83540; 83550; 84144; 86664; 86665

== ENCOUNTER 2021-10-21 02:59 | Outpatient (CLI) | payer MEDICAID, SELFPAY ==
[2021-10-21 14:36] LABS: Vitamin D 25 Total 25.3 ng/mL (30-100)
[2021-10-21 14:40] LABS: Ferritin 29 ng/mL (8-252); Folate 18.2 ng/mL (8.6-20.0); Vitamin B12 522 pg/mL (193-986)
[2021-10-21 14:41] LABS: HCG Quant, Pregnancy 43852 mIU/mL (1-3)
== END 2021-10-21 03:00 | disposition home or self-care (01) ==
PROVIDERS: PCP Nurse Practitioner Family; Visit Provider Naturopath
DX: R79.89 Other specified abnormal findings of blood chemistry (principal); E55.9 Vitamin D deficiency, unspecified; E53.8 Deficiency of other specified B group vitamins; Z32.01 Encounter for pregnancy test, result positive
CPT/HCPCS: 36415; 82306; 82607; 82728; 82746; 84702

== ENCOUNTER 2021-11-29 02:58 | Outpatient (CLI) | payer MEDICAID, SELFPAY ==
[2021-11-29 11:24] LABS: Abs Immature Grans 0.02 10^3/uL (0.0-0.06); Absolute Basophil Count 0.02 10^3/uL (0.0-0.2); Absolute Eosinophil Count 0.04 10^3/uL (0.0-0.7); Absolute Lymphocyte Count 1.45 10^3/uL (1.2-3.4); Absolute Monocyte Count 0.49 10^3/uL (0.1-0.8); Absolute Neutrophil Count 5.75 10^3/uL (1.2-6.7); Basophils % 0.3; Eosinophils % 0.5; HCT 36.2 % (36.0-46.0); HGB 12.1 g/dL (11.2-15.7); Immature Grans % 0.3; Lymphocytes % 18.7; MCH 30.3 pg (27.0-33.0); MCHC 33.4 % (32.0-36.0); MCV 91 fL (80-95); MPV 12.7 fL (8.0-11.0); Monocytes % 6.3; Neutrophils % 73.9; Platelet Count 154 10^3/uL (130-400); RBC 3.99 10^6/uL (3.93-5.22); RDW 13.1 % (11.7-14.6); WBC 7.77 10^3/uL (4.4-10.8)
[2021-11-30 08:54] LABS: Hepatitis B Surface Ag Negative (Negative)
[2021-11-30 09:23] LABS: HIV-1/2 Ag & Ab Screen Negative (Negative)
[2021-11-30 09:45] LABS: Hepatitis C Ab w Rflx HCV PCR Negative (Negative)
[2021-11-30 11:14] LABS: Rubella IgG Ab (UVM) Positive (See Note); Varicella IgG Antibody Positive (See Note)
[2021-12-01 00:33] LABS: Syphilis IgG w/Reflex Nonreactive (Nonreactive)
== END 2021-11-29 02:59 | disposition home or self-care (01) ==
LOC: LBO 02:58
PROVIDERS: Advanced Practice Midwife; PCP Nurse Practitioner Family; Visit Provider Advanced Practice Midwife
DX: O09.521 Supervision of elderly multigravida, first trimester (principal); Z3A.11 11 weeks gestation of pregnancy
CPT/HCPCS: 36415; 86787; 86803; 86850; 86900; 86901; 87340; 87389; 85025; 86762; 86780

== ENCOUNTER 2021-11-29 17:14 | Outpatient (CLI) | payer MEDICAID, SELFPAY | END 2021-11-29 17:15 | disposition home or self-care (01) | LOC: LBO 17:15 | PROVIDERS: PCP Nurse Practitioner Family; Visit Provider Advanced Practice Midwife ==

== ENCOUNTER → 2022-01-12 01:39 | Outpatient (CLI) | payer MEDICAID, SELFPAY ==
--- NOTE | 2022-01-12 07:15 | DI.US_ITS ---
Exam(s) US OB 2-3 TRIMESTER EXAM: US OB 2-3 TRIMESTER CLINICAL HISTORY: anatomy surVEY,o09.529. TECHNIQUE: Transabdominal obstetrical ultrasound was performed. COMPARISON: US US OB VIVEK WEIGHT from 03/18/2020 FINDINGS: There is a single viable intrauterine gestation with cardiac activity identified-131 bpm. Amniotic fluid: There is a low normal amount of amniotic fluid. Placental location: The placenta is anterior grade 1,with no evidence of placenta previa.Distance fro m the placental tip to the internal cervical os is 5.5 cm. Cervical length is 3.5 cm and closed. ANATOMY: A 3 vessel umbilical cord is seen. A four-chamber cardiac view was obtained. Right and left ventricular outflow tracts were imaged. There are no obvious abnormalities of the spinal column evident. There is no obvious abnormal ity of the anterior abdominal wall. stomach and urinary bladder are identified and there is no evidence of hydronephrosis. No abnormalities of the upper lip region are identified. No evidence of choroid plexus cysts i n the brain. Dating parameters place this at approximately 18 weeks and 4 days gestational age. BPD measures 18 weeks and 5 days HC measures 18 weeks and 3 days AC measures 18 weeks and 4 days FL measures 18 weeks and 3 days Estimated weight is 244 Gy gm-0 pounds, 9 ounces. Fetus is at the 60th percentile on the Hadlock scale. IMPRESSION:: Single viable intrauterine gestation which is approximately 18 weeks and 4 days gestati onal age, implying an CONRAD of 06/11/2022. There are no obvious anomalies evident on today's study. The placenta is anterior with no evidence of placenta previa. There is a no low normal amount of amniotic fluid. DATA REPOSITORY:
== END ==
PROVIDERS: PCP Nurse Practitioner Family; Visit Provider Advanced Practice Midwife
DX: O09.522 Supervision of elderly multigravida, second trimester (principal)
CPT/HCPCS: 76805

== ENCOUNTER 2022-01-26 04:19 | Outpatient (CLI) | payer MEDICAID, SELFPAY ==
[2022-01-26 17:26] LABS: FREE T4 0.93 ng/dL (0.76-1.46); TSH 1.31 uIU/mL (0.36-3.74)
[2022-01-27 18:47] LABS: T3,Free 2.5 pg/mL (2.8-5.3)
[2022-02-01 20:14] LABS: Thyroid Stimulating Immunoglob <1.0 TSI index (<=1.3)
== END 2022-01-26 04:20 | disposition home or self-care (01) ==
LOC: LBO 04:19
PROVIDERS: Student in an Organized Health Care Education/Training Program; PCP Nurse Practitioner Family; Visit Provider Nurse Practitioner Family
DX: E05.00 Thyrotoxicosis with diffuse goiter without thyrotoxic crisis or storm (principal)
CPT/HCPCS: 36415; 84439; 84443; 84445; 84481

== ENCOUNTER 2022-02-02 01:52 | Outpatient (CLI) | payer MEDICAID, SELFPAY ==
[2022-02-02 16:22] LABS: Hemoglobin A1C 5.3 % (<5.7)
[2022-02-02 16:39] LABS: ALT 17 U/L (14-59); AST 12 U/L (15-37); Albumin 2.9 g/dL (3.4-5.0); Alkaline Phosphatase 87 U/L (46-116); Anion Gap 8.9 mmol/L (3-11); BUN 15 mg/dL (7-18); Bilirubin, Total 0.2 mg/dL (0.2-1.0); CO2 24.1 mmol/L (21.0-32.0); CREATININE 0.9 mg/dL (0.55-1.02); Calcium 8.2 mg/dL (8.5-10.1); Chloride 102 mmol/L (98-107); Estimated GFR 84.44 (mL/min/1.73m2); Glucose 86 mg/dL (74-106); Potassium 3.6 mmol/L (3.5-5.1); Sodium 135 mmol/L (136-145); Total Protein 7.2 g/dL (6.4-8.2)
== END 2022-02-02 01:53 | disposition home or self-care (01) ==
PROVIDERS: Visit Provider Midwife
DX: O13.2 Gestational [pregnancy-induced] hypertension without significant proteinuria, second trimester (principal); O99.810 Abnormal glucose complicating pregnancy; Z3A.21 21 weeks gestation of pregnancy
CPT/HCPCS: 36415; 80053; 83036; 84436; 84443; 84481

== ENCOUNTER 2022-04-19 16:20 | Outpatient (REF) | payer MEDICAID, SELFPAY ==
[2022-04-19 09:27] LABS: HCT 34.2 % (36.0-46.0); HGB 11.4 g/dL (11.2-15.7); MCH 31.6 pg (27.0-33.0); MCHC 33.3 % (32.0-36.0); MCV 95 fL (80-95); Platelet Count 141 10^3/uL (130-400); RBC 3.61 10^6/uL (3.93-5.22); RDW 12.6 % (11.7-14.6); RDW-SD 43.2 fL; WBC 6.16 10^3/uL (4.4-10.8)
[2022-04-19 09:29] LABS: Glucose,1 Hr (Glucola) 213 mg/dL (80-140)
[2022-04-19 09:44] LABS: FREE T4 0.96 ng/dL (0.76-1.46); TSH 1.57 uIU/mL (0.36-3.74)
== END 2022-04-19 16:21 | disposition home or self-care (01) ==
LOC: LBN 16:20
PROVIDERS: PCP Naturopath; Visit Provider Advanced Practice Midwife
DX: O99.283 Endocrine, nutritional and metabolic diseases complicating pregnancy, third trimester (principal); E05.00 Thyrotoxicosis with diffuse goiter without thyrotoxic crisis or storm; O24.410 Gestational diabetes mellitus in pregnancy, diet controlled; Z3A.32 32 weeks gestation of pregnancy
CPT/HCPCS: 82950; 85027; 84439; 84443

== ENCOUNTER → 2022-05-06 00:36 | Outpatient (CLI) | payer MEDICAID, SELFPAY ==
--- NOTE | 2022-05-06 07:15 | DI.US_ITS ---
Exam(s) US OB VIVEK WEIGHT EXAM: US OB VIVEK WEIGHT CLINICAL HISTORY: growth and position,diabetes,previous small for age,O24.419. TECHNIQUE: Transabdominal obstetrical ultrasound was performed. COMPARISON: US US OB 2-3 TRIMESTER from 01/12/2022 FINDINGS: There is a single viable intrauterine gestation with cardiac activity identified-127 bpm The fetus is presently in cephalic position . Amniotic fluid: There is a normal amount of amniotic fluid with an VIVEK of 12.6cm. Placental location: The placenta is anterior grade 1,with no evidence of placenta previa. Dating parameters place this at approximately 34 weeks and 5 days gestational age, implying CONRAD of June 12, 2022. BPD measures 36 weeks and 4 days HC measures 36 weeks and 0 days AC measures 32 weeks and 5 days FL measures 33 weeks and 1 day Estimated weight is 2219 gm-4 pounds, 14 ounces. Fetus is at the 18th percentile on the Hadlock scale. IMPRESSION:: Viable 3rd trimester gestation, as described above. Fetus is at the 18th percentile on the Hadlock scale. DATA REPOSITORY:
== END ==
PROVIDERS: PCP Naturopath; Visit Provider Obstetrics & Gynecology
DX: O24.410 Gestational diabetes mellitus in pregnancy, diet controlled (principal); O09.523 Supervision of elderly multigravida, third trimester; Z3A.34 34 weeks gestation of pregnancy
CPT/HCPCS: 76816

== ENCOUNTER 2022-05-20 07:00 | Outpatient (CLI) | payer MEDICAID, SELFPAY ==
[2022-05-20 13:01] VITALS: BP 110/61; PULSE 67; TEMP 36.8
[2022-05-20 13:15] VITALS: BP 110/61; PULSE 67
--- NOTE | 2022-05-20 13:39 | W.OBNST ---
Date of service: 05/20/22 Time of Service: 13:40 NST Evaluation Reason for NST Reasons for Nonstress Test: GDM-DIET CONTROLLED and ADVANCED MATERNAL AGE Gestational Age Gestational Age in Weeks and Days: 36 Weeks and 4Days Test and Monitor Explained Test/Monitor Explained: Test Explained, Monitor Explained and Patient Verbalized Understanding Vital Signs Blood Pressure: 110/61 Pulse: 67 Temperature: 98.2 F NST Information Date on Monitor: 05/20/22 Time on Monitor: 13:05 Date off Monitor: 05/20/22 Time off Monitor: 13:29 Total Time on Monitor: 24 NST Interventions: PO Hydration NST Evaluation Patient States Movement: Present FHR Baseline: 130 Variability: Moderate 6-25 bpm Accelerations: 15x15 Decelerations: None NST Results: Reactive Note Presentation (Vertex) Presentation Results: Vertex NST Note Note: Patient seen while on the center for surveillance. She has a category 1 reactive nonstress test. Bedside ultrasound was performed to confirm position which is vertex. All questions were answered. She will continue to have twice weekly nonstress testing and weekly OB visits. Anticipate normal spontaneous vaginal delivery at term. Labor induction if 39 weeks or greater. NST Reviewed and Verified by: Pauline Damon
[2022-05-20 13:40] VITALS: BP 110/61; PULSE 67; TEMP 36.8
== END 2022-05-20 13:44 | disposition home or self-care (01) ==
LOC: BCD 07:00 → OBS 13:00
PROVIDERS: PCP Naturopath; Visit Provider Obstetrics & Gynecology
DX: O09.523 Supervision of elderly multigravida, third trimester (principal); O24.410 Gestational diabetes mellitus in pregnancy, diet controlled; Z3A.36 36 weeks gestation of pregnancy
CPT/HCPCS: 59025

== ENCOUNTER 2022-05-24 09:03 | Outpatient (CLI) | payer MEDICAID, SELFPAY ==
[2022-05-24 11:07] VITALS: BP 112/72; PULSE 74; TEMP 36.6
[2022-05-24 11:10] VITALS: BP 112/72; PULSE 74
--- NOTE | 2022-05-24 11:33 | W.OBNST ---
Date of service: 05/24/22 Time of Service: 11:33 NST Evaluation Reason for NST Reasons for Nonstress Test: GDM-DIET CONTROLLED Gestational Age Gestational Age in Weeks and Days: 37 Weeks and 1Days Test and Monitor Explained Test/Monitor Explained: Test Explained and Monitor Explained Vital Signs Blood Pressure: 112/72 Pulse: 74 Temperature: 97.9 F NST Information Date on Monitor: 05/24/22 Time on Monitor: 11:05 Date off Monitor: 05/24/22 Time off Monitor: 11:31 Total Time on Monitor: 26 NST Interventions: IV Fluids NST Evaluation Patient States Movement: Present FHR Baseline: 125 Variability: Moderate 6-25 bpm Accelerations: 15x15 Decelerations: None NST Results: Reactive Note NST Note Note: Reactive nonstress test, category 1 strip. Group B strep culture self collected. NST Reviewed and Verified by: Pauline Damon
[2022-05-24 11:34] VITALS: BP 112/72; PULSE 74; TEMP 36.6
== END 2022-05-24 11:35 | disposition home or self-care (01) ==
LOC: BCD 09:05 → OBS 10:59
PROVIDERS: PCP Naturopath; Visit Provider Obstetrics & Gynecology Gynecology
DX: O24.410 Gestational diabetes mellitus in pregnancy, diet controlled (principal); O09.523 Supervision of elderly multigravida, third trimester; Z3A.37 37 weeks gestation of pregnancy
CPT/HCPCS: 59025; 87081

== ENCOUNTER 2022-05-27 07:29 | Outpatient (CLI) | payer MEDICAID, SELFPAY ==
[2022-05-27 09:10] VITALS: BP 112/64; PULSE 63; TEMP 36.6
--- NOTE | 2022-06-09 10:29 | W.OBNST ---
Date of service: 05/27/22 Time of Service: 10:00 NST Evaluation Reason for NST Reasons for Nonstress Test: GDM-DIET CONTROLLED and ADVANCED MATERNAL AGE Gestational Age Gestational Age in Weeks and Days: 39 Weeks and 1Days Test and Monitor Explained Test/Monitor Explained: Test Explained, Monitor Explained and Patient Verbalized Understanding Vital Signs Blood Pressure: 112/64 Pulse: 63 Temperature: 97.9 F NST Information Date on Monitor: 05/27/22 Time on Monitor: 09:15 Date off Monitor: 05/27/22 Time off Monitor: 10:00 Total Time on Monitor: 45 NST Interventions: PO Hydration NST Evaluation Patient States Movement: Present FHR Baseline: 130 Variability: Moderate 6-25 bpm Accelerations: 15x15 Decelerations: None NST Results: Reactive Note N/A NST Note NST Reviewed and Verified by: Martha Arteaga
[2022-06-09 10:30] VITALS: BP 112/64; PULSE 63; TEMP 36.6
== END 2022-05-27 10:00 | disposition home or self-care (01) ==
LOC: BCD 07:30 → OBS 09:09
PROVIDERS: PCP Naturopath; Visit Provider Obstetrics & Gynecology
DX: O09.523 Supervision of elderly multigravida, third trimester (principal); Z3A.39 39 weeks gestation of pregnancy
CPT/HCPCS: 59025

== ENCOUNTER 2022-05-31 09:38 | Outpatient (CLI) | payer MEDICAID, SELFPAY ==
[2022-05-31 11:17] VITALS: BP 104/63; PULSE 63; TEMP 36.6
[2022-05-31 11:41] VITALS: BP 104/63; PULSE 63; TEMP 36.6
--- NOTE | 2022-05-31 13:38 | W.OBNST ---
Date of service: 05/31/22 Time of Service: 11:00 NST Evaluation Reason for NST Reasons for Nonstress Test: GDM- PO MEDICATION Gestational Age Gestational Age in Weeks and Days: 38 Weeks and 1Days Test and Monitor Explained Test/Monitor Explained: Test Explained, Monitor Explained and Patient Verbalized Understanding Vital Signs Blood Pressure: 104/63 Pulse: 63 Temperature: 97.9 F Urine Results Urine Protein: Negative Urine Ketones: Negative Urine Glucose: Negative Urine Blood: Negative NST Information Date on Monitor: 05/31/22 Time on Monitor: 11:15 Date off Monitor: 05/31/22 Time off Monitor: 11:42 Total Time on Monitor: 27 NST Interventions: None Contraction Frequency: 0 NST Evaluation Patient States Movement: Present FHR Baseline: 130 Variability: Moderate 6-25 bpm Accelerations: 15x15 Decelerations: None NST Results: Reactive Note NST Note Note: See visit note. Reactive NST. Return later this week. NST Reviewed and Verified by: Martha Arteaga
[2022-05-31 13:39] VITALS: BP 104/63; PULSE 63; TEMP 36.6
== END 2022-05-31 11:50 ==
LOC: BCD 09:40 → OBS 11:10
PROVIDERS: PCP Naturopath; Visit Provider Obstetrics & Gynecology
DX: O24.410 Gestational diabetes mellitus in pregnancy, diet controlled (principal); O09.523 Supervision of elderly multigravida, third trimester; Z3A.38 38 weeks gestation of pregnancy
CPT/HCPCS: 59025

== ENCOUNTER 2022-06-03 08:04 | Outpatient (CLI) | payer MEDICAID, SELFPAY ==
[2022-06-03 11:08] VITALS: BP 118/70; PULSE 69
[2022-06-03 11:09] VITALS: BP 118/70; PULSE 69; TEMP 36.9
--- NOTE | 2022-06-03 12:26 | W.OBNST ---
Date of service: 06/03/22 Time of Service: 12:26 NST Evaluation Reason for NST Reasons for Nonstress Test: ADVANCED MATERNAL AGE Gestational Age Gestational Age in Weeks and Days: 38 Weeks and 4Days Test and Monitor Explained Test/Monitor Explained: Test Explained, Monitor Explained and Patient Verbalized Understanding Vital Signs Blood Pressure: 118/70 Pulse: 69 Temperature: 98.5 F NST Information Date on Monitor: 06/03/22 Time on Monitor: 11:08 Date off Monitor: 06/03/22 Time off Monitor: 11:30 Total Time on Monitor: 22 NST Interventions: PO Hydration NST Evaluation Patient States Movement: Present FHR Baseline: 130 Variability: Moderate 6-25 bpm Accelerations: 15x15 Decelerations: None NST Results: Reactive Note NST Note Note: Patient requested induction of labor on 06/11/20202022. I recommended that she have a cervical exam early next week and based on the vaginal exam have an admission the morning of 06/10/2022 for oxytocin infusion or cervical ripening later that same day. She is agreeable to the plan NST Reviewed and Verified by: Lali Hu
[2022-06-03 12:27] VITALS: BP 118/70; PULSE 69; TEMP 36.9
== END 2022-06-03 11:35 | disposition home or self-care (01) ==
LOC: BCD 08:10 → OBS 10:58
PROVIDERS: PCP Naturopath; Visit Provider Obstetrics & Gynecology Gynecology
DX: O09.523 Supervision of elderly multigravida, third trimester (principal); Z3A.38 38 weeks gestation of pregnancy
CPT/HCPCS: 59025

== ENCOUNTER 2022-06-07 07:03 | Outpatient (CLI) | payer MEDICAID, SELFPAY ==
[2022-06-07 12:13] VITALS: BP 118/78; PULSE 73; TEMP 36.5
[2022-06-07 12:23] VITALS: BP 118/78; PULSE 73
== END 2022-06-07 12:35 | disposition home or self-care (01) ==
LOC: BCD 07:03 → OBS 12:11
PROVIDERS: PCP Naturopath; Visit Provider Obstetrics & Gynecology
DX: O09.523 Supervision of elderly multigravida, third trimester (principal)
CPT/HCPCS: 59025

== ENCOUNTER 2022-06-10 01:40 | Inpatient (IN) | payer OTHER, MEDICAID, SELFPAY ==
[2022-06-10] VITALS (12 sets, daily range): BP systolic 97–131; BP diastolic 55–77; PULSE 58–74; RESP 14–18; TEMP 37–37.1
--- NOTE | 2022-06-10 02:33 | W.PM.OBHPL1 ---
Date of service: 06/10/22 Time of Service: 02:34 Assessment and Plan Assessment and plan (1) Uterine contractions: Status: Acute Assessment and plan: Pt in early active labor. Plan is to admit to inpt status in anticipation of continued cervical changes. Pt is comfortable at present. No desire for regional anesthesia. Plans to have a butter maker in attendance for labor support. (2) Anxiety associated with depression: Status: Acute Assessment and plan: Will continue Citalopram while hospitalized and (3) Elderly multigravida, currently : Status: Acute Assessment and plan: Pt has agreed to IV access during labor and in period OB-HPI Labor/Delivery History of Present Illness Reason for Visit: contractions at 39w4d EGA. Chief Complaint: Uterine Contractions. CONRAD Calculator Estimated Delivery Date Method Current WG Current Estimate 06/13/22 LMP (Certain) 39w 4d Other Estimates 06/14/22 Ultrasound #1 39w 3d Comments: Pt reports onset of painful irreg contractions beginning at 2100 on 06/09/22. No SROM. Pt was scheduled for IOL later today. The IOL was for social indicators; pt has precipitous vaginal with previous and wanted to avoid the same experience with this delivery. History of Present Expected Delivery Route/Plan - MD (elects @ 27 wks) FOB/partner - Wilber Villa (5th baby together) BB Plans FOB & butter maker Florence for support team, may also request CNM presence GDM per 1 hr glucola >200 @ 32 wks Specific Issues/Plan 1. AMA, desires cfDNA screen, will recommend low dose ASA at 12 wks, previous CF testing neg 2. BMI 30.6, early glucola- did not do but wore dexcom x10 days = no high blood sugars. 2a. 1 hr glucola at 32 wks (04/19)=213: GDM, Dexacom then fingersticks.05/11/22. Nl PP fingersticks. Instructed to stop fingersticks. 3. Post anxiety after 3rd and after PTSD after vaginal breech & hx depression, in therapy, Lexapro 20 mg qd 3a. Working with Florence Merritt who will be her butter maker for this . 4. History of Graves disease. Level 2 US @ 18 wk w/MFM consult , TSH and FT4 wnl 04/19 5. History of symphysis pubis separation during 3rd , chiropractor in the past. 6. Plans TL, consent signed 03/31/22 Assessment: History Reviewed & Current Informed Consent Informed Consent: Other (anticipated vaginal delivery) Review of Systems Constitutional Constitutional: Reports as per HPI and Reports difficulty sleeping PFSH All Active Problems (Updated 06/10/22 @ 02:57 by Lali Hu MD) Uterine contractions (Acute) Previous baby was small for gestational age (Acute) Elevated glucose tolerance test (Acute) Graves' disease (Chronic) Dx ? 2016. Rx with Methimazole 5mg/day.(Usual dose 30mg/day) TSH ok with current dose. Previous thyroid u/s: no cancerous nodules. 08/08/19. Change to PTU 50mg/day (usual dose 100mg/TID) Recheck TSH in 4w. Antibody testing: PTSD (post-traumatic stress disorder) (Acute) Anxiety associated with depression (Acute) Elderly multigravida, currently (Acute) Latex allergy (Acute) (Acute) Gestational diabetes (Acute) Medical History (Updated 06/10/22 @ 02:57 by Lali Hu MD) Allergy to banana Allergy to marielle fruit At risk for depressed mood during period anxiety after third Gluten intolerance Hip pain Lactose intolerance Pelvic pain Rotator cuff arthropathy of right shoulder injury and PT 05/2019 Surgical History (Updated 08/08/19 @ 20:57 by Lali Hu MD) History of ankle surgery 2009 Hx of tonsillectomy 1989 Family History (Updated 09/11/19 @ 15:12 by Lea Law CNM) Father No problems noted. Mother Diabetes pre-diabetic Hypertension Maternal Grandmother Diabetes Type 2 Sister Arrhythmia heart ablation Aunt Breast cancer Pos. BRCA Several others in father's family pos for BRCA Social History (Updated 08/08/19 @ 21:01 by Lali Hu MD) Smoking/Tobacco Use Status: Former Tobacco Use Tobacco: How many years used: 3 Quit status: has quit before Smoking risk assessment performed?: Yes Alcohol Intake: never Drug use: Never Substance use type: does not use Household members: spouse, children and other Details: H-Wilber, [id number] dad. 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 Sexually active: Yes Female Reproductive History Menstrual Duration of menses: 3-5 days control method: none History History 7 Para 4 Hx # Term Pregnancies 4 Multiple births 0 Hx # Pregnancies 0 Ectopic pregnancies 0 AB induced 0 Hx Number of Living Children 4 AB spontaneous 2 Past Pregnancies Del. Date GA/Weeks # Preg Succ Route Wgt Sex Labor Lgth Anesthesia Location Prov Compl 09/28/05 39 No Yes vaginal 7 lb 5 oz Male 28 [facility] 08/21/07 10/22/08 39 No Yes vaginal 7 lb 5 oz Male 20 [facility] 08/22/11 02/16/13 41 No Yes vaginal 6 lb 10 oz Female 8 hrs home , [place] 04/08/20 40 No Yes vaginal 5 lb 2 oz Male [address] Ozuna and Sheree Law CNM Delivery Date: 09/28/05 Last Updated by: Lea Law CNM Pitocin augmentation Delivery Date: 08/21/07 Last Updated by: Lea Law CNM SAB Delivery Date: 08/22/11 Last Updated by: Lea Law CNM SAB Delivery Date: 02/16/13 Last Updated by: Lea Law CNM Home , no complications Delivery Date: 04/08/20 Last Updated by: Lea Law CNM vaginal breech, Precipitous labor and . pt has had PTSD since this delivery Meds Allergies and Home Medications Allergies Allergy/AdvReac Type Severity Reaction Status Date / Time latex Allergy Severe hives Verified 05/11/22 13:01 adhesive tape Allergy Intermediate rash Verified 05/11/22 13:01 coffee (Coffea arabica) Allergy Mild Unverified 05/11/22 13:01 nickel Allergy Skin Rash Verified 05/11/22 13:01 carrageenan AdvReac Intermediate Unverified 05/11/22 13:01 gluten AdvReac Intermediate Verified 05/11/22 13:01 avocado AdvReac Mild Unverified 05/11/22 13:01 banana AdvReac Mild Unverified 05/11/22 13:01 marielle AdvReac Mild Unverified 05/11/22 13:01 tomato AdvReac Mild Unverified 05/11/22 13:01 eggs Allergy Other (See Uncoded 05/11/22 13:01 Comment) dairy AdvReac Severe Uncoded 05/11/22 13:01 Home Medications Medication Instructions Recorded Confirmed Type cholecalciferol (vitamin D3) 25 25 mcg PO DAILY 08/08/19 05/31/22 History mcg (1,000 unit) capsule (Vitamin D3) Boostrix Tdap 2.5 Lf unit-8 mcg-5 0.5 ml IM ONCE #0.5 mL 01/23/20 04/07/20 Clinic Lf/0.5 mL intramuscular syringe (diphth,pertus(acell),tetanus) prenat.vits,rubio,jcu-swsu-rnoou 1 tab PO DAILY 11/12/21 05/31/22 History blood builder 2 tab PO DAILY 02/17/22 05/31/22 History blood sugar diagnostic (Advanced #100 ea 04/29/22 05/24/22 Rx Glucose Meter Test Strips) blood-glucose meter (Advanced #1 ea 04/29/22 05/24/22 Rx Glucose Meter) lancets 30 gauge (Advanced Travel #100 ea 04/29/22 05/24/22 Rx Lancets) escitalopram oxalate 20 mg tablet 20 mg PO DAILY #30 tabs 05/31/22 05/31/22 Rx Exam Physical Exam Vital signs: Temp Pulse Resp BP 98.7 F 74 16 131/77 06/10/22 01:46 06/10/22 01:46 06/10/22 01:46 06/10/22 01:46 Vital Signs Reviewed: Yes Constitutional Constitutional: no acute distress Detailed Labor and Delivery Exam Dilation: 4 (Per RNs assessment.) Effacement (%): 60 station: -1 Position: OA Cervix position: mid Consistency: medium Lawson Score: Cervical Points Exam 0 1 2 3 Dilation Closed 1-2cm 3-4 cm 5-6cm Effacement 0-30% 40-50% 60-70% 80% Consistency Firm Medium Soft Station -3 -2 -1,0 +1,+2 Position Posterior Mid Anterior LAWSON Score(Cervical Ripeness Score): 7 Amniotic Membrane Status: Intact Contraction Frequency(min): q6min Contraction Intensity: Mild/Moderate Fetus A Heart Rate Baseline: 150 Monitor Accelerations: 15 X 15 Monitor Decelerations: None Variability: Moderate (6-25 BPM) Presentation: Cephalic Categories: Category I Est. Weight: 7 lb Assessment Note: 20min FHR eval on admission Neck Exam Neck Exam: Normal Chest/Brest/Axilla Exam Chest Exam: Not Done Breast Exam Breast Exam: Not Done Respiratory Exam Respiratory Exam: Normal Cardiovascular Exam Cardiovascular Exam: Normal Abdominal Exam Abdominal Exam: Normal Rectal Exam Rectal Exam: Not Done Exam Exam: Normal (Per RN exam.) Extremities Exam Extremities Exam: Normal Back/Spine/Pelvis Exam Back Exam: Normal Pelvis Adequate: Yes Skin Exam Skin Exam: Normal Neurological Exam Neurological Exam: Normal Psychiatric Exam Psychiatric Exam: Normal (Pt reports being anxious. Prefers to remain on BC rather than be at home.) Risk Assessment Risk for Shoulder Dystocia Historical/Initial OB: POSITIVE FOR: Pre- BMI>30; NEGATIVE FOR: Pelvic Abnormality, Previous Shoulder Dystocia or Previous Macrosomia Increased Risk?: No Risk for Pre-Eclampsia Daily Dose ASA Indicated: No Date Initiated/Initials: will recommend low dose ASA at 12 wks. JK Yes, if one or more: NEGATIVE FOR: Hx Pre-E/Gest HTN, Chronic HTN, Multiple Gestation, Pre-gestational DM, Renal Disease, Systemic Lupus or APA Syndrome Yes, if 2 or more: POSITIVE FOR: Age>= 35 yrs and BMI>30; NEGATIVE FOR: Nulliparity, >10yr btwn pregnancies, ethinicty, Mother/Sister w/ Pre-E or Previous IUGR Risk for Post- Hemorrhage Initial: POSITIVE FOR: Grand Multiparity; NEGATIVE FOR: Multiple Gestation, Previous PPH, Known Clotting Deficiency or Anticoagulation Interventions: T&S, CBC on admission Counseled re: Active Management: Yes Date/Initials: [facility] 06/10/22 Risks Reviewed Risks Reviewed Upon Admission: Yes
[2022-06-10 03:11] LABS: Source Nasal/Nares
[2022-06-10 03:13] LABS: HCT 32.7 % (36.0-46.0); MCH 31.3 pg (27.0-33.0); MCHC 33.6 % (32.0-36.0); MCV 93 fL (80-95); MPV 12.8 fL (8.0-11.0); Platelet Count 116 10^3/uL (130-400); RBC 3.51 10^6/uL (3.93-5.22); RDW-SD 43.7 fL; WBC 7.98 10^3/uL (4.4-10.8)
[2022-06-10 03:41] LABS: COVID-19 PCR Negative (Negative)
--- NOTE | 2022-06-10 07:28 | W.PM.OBNL1 ---
Date of service: 06/10/22 Time of Service: 07:28 Informed Consent Informed Consent: Risk,Benefits,Alternatives Discussed (Of SROM versus expectant management.) and Other (anticipated vaginal delivery) Pelvic Exam Dilation: 6 Effacement (%): 100 station: 0 Position: OA Cervix Position: mid Consistency: soft Vaginal Exam Presentation: Cephalic Contractions Monitor Mode: None (External tocometer has been off of patient slept.) Fetus A Monitor: None ( heart tones measured when patient arrived. Patient slept several hours) Presentation: Cephalic Assessment and Plan Assessment and plan (1) Uterine contractions: Status: Acute Assessment and plan: Patient is now in active labor. The plan is to place IV begin continuous monitoring and perform AROM. Patient's labor Dula is present. Objective Abnormal lab results 06/10/22 Range/Units 03:02 RBC 3.51 L (3.93-5.22) 10^6/uL Hgb 11.0 L (11.2-15.7) g/dL Hct 32.7 L (36.0-46.0) % Plt Count 116 L (130-400) 10^3/uL MPV 12.8 H (8.0-11.0) fL Temp Pulse Resp BP 98.7 F 72 16 109/66 06/10/22 04:57 06/10/22 04:57 06/10/22 04:57 06/10/22 04:57 Laboratory Results WBC 7.98 10^3/uL (4.4-10.8) 06/10/22 03:02 RBC 3.51 10^6/uL (3.93-5.22) L 06/10/22 03:02 Hgb 11.0 g/dL (11.2-15.7) L 06/10/22 03:02 Hct 32.7 % (36.0-46.0) L 06/10/22 03:02 MCV 93 fL (80-95) 06/10/22 03:02 MCH 31.3 pg (27.0-33.0) 06/10/22 03:02 MCHC 33.6 % (32.0-36.0) 06/10/22 03:02 RDW 13.0 % (11.7-14.6) 06/10/22 03:02 Plt Count 116 10^3/uL (130-400) L 06/10/22 03:02 MPV 12.8 fL (8.0-11.0) H 06/10/22 03:02 COVID-19 Source Nasal/Nares 06/10/22 02:30 SARS-CoV-2 (PCR) Negative (Negative) 06/10/22 02:30 Patient ABO/Rh O Positive 06/10/22 03:02 Antibody Screen NEGATIVE 06/10/22 03:02 Vital Signs Reviewed: Yes Notable Details: Patient was allowed to rest since arrival. Subjective Patient Reports: New Complaints Interval history since last seen: Patient reports increasing strength of contractions. No rupture membranes no bloody show. She is requesting vaginal exam. Her labor Dula is with her. Results Hemoglobin/Hematocrit: Hgb 11.0 g/dL (11.2-15.7) L 06/10/22 03:02 Hct 32.7 % (36.0-46.0) L 06/10/22 03:02 Abnormal Lab Findings: Abnormal Labs 06/10/22 03:02 RBC 3.51 L Hgb 11.0 L Hct 32.7 L Plt Count 116 L MPV 12.8 H
[2022-06-10] MEDS: Normal Saline Flush 10 ML SYR IVP (09:10)
--- NOTE | 2022-06-10 11:15 | W.PM.OBNL1 ---
Date of service: 06/10/22 Time of Service: 11:15 Informed Consent Informed Consent: Risk,Benefits,Alternatives Discussed (Of SROM versus expectant management.) and Other (anticipated vaginal delivery) Pelvic Exam Dilation: 8 Effacement (%): 90 station: 0 Position: HIRO Comments: Artificial rupture of membranes for clear fluid Contractions Contraction Frequency(min): 3 Contraction Duration(sec): 60 Fetus A Heart Rate Baseline: 138 Assessment and Plan Assessment and plan (1) Normal labor: Status: Acute Assessment and plan: Active labor, artificial rupture of membranes for clear fluid. Using nitrous for analgesia. Expect vaginal delivery. Objective Abnormal lab results 06/10/22 Range/Units 03:02 RBC 3.51 L (3.93-5.22) 10^6/uL Hgb 11.0 L (11.2-15.7) g/dL Hct 32.7 L (36.0-46.0) % Plt Count 116 L (130-400) 10^3/uL MPV 12.8 H (8.0-11.0) fL Temp Pulse Resp BP 98.6 F 68 18 123/62 06/10/22 08:33 06/10/22 08:33 06/10/22 08:33 06/10/22 08:33 Laboratory Results WBC 7.98 10^3/uL (4.4-10.8) 06/10/22 03:02 RBC 3.51 10^6/uL (3.93-5.22) L 06/10/22 03:02 Hgb 11.0 g/dL (11.2-15.7) L 06/10/22 03:02 Hct 32.7 % (36.0-46.0) L 06/10/22 03:02 MCV 93 fL (80-95) 06/10/22 03:02 MCH 31.3 pg (27.0-33.0) 06/10/22 03:02 MCHC 33.6 % (32.0-36.0) 06/10/22 03:02 RDW 13.0 % (11.7-14.6) 06/10/22 03:02 Plt Count 116 10^3/uL (130-400) L 06/10/22 03:02 MPV 12.8 fL (8.0-11.0) H 06/10/22 03:02 COVID-19 Source Nasal/Nares 06/10/22 02:30 SARS-CoV-2 (PCR) Negative (Negative) 06/10/22 02:30 Patient ABO/Rh O Positive 06/10/22 03:02 Antibody Screen NEGATIVE 06/10/22 03:02 Subjective Interval history since last seen: Patient seen and examined. More uncomfortable with contractions. Consent for artificial rupture of membranes discussed. Results Hemoglobin/Hematocrit: Hgb 11.0 g/dL (11.2-15.7) L 06/10/22 03:02 Hct 32.7 % (36.0-46.0) L 06/10/22 03:02 Abnormal Lab Findings: Abnormal Labs 06/10/22 03:02 RBC 3.51 L Hgb 11.0 L Hct 32.7 L Plt Count 116 L MPV 12.8 H
[2022-06-10] MEDS: Oxytocin/Normal Saline 30 UNIT/500 ML BAG 95 UNITS IV (11:55)
--- NOTE | 2022-06-10 13:00 | OBVDS_ITS ---
Date of service: 06/10/22 Time of Service: 13:00 OB Labor/ Delivery Information Baby A Delivery Delivery Method: Spontaneaous Presentation: Vertex Cephalic Position: Vertex Vertex Position: Right Occipital Anterior Cord Description-Baby A: 3 Vessels Amniotic Fluid: Clear Estimated Blood Loss: 100 Delivery Outcome: Liveborn Infant Complications: none Note: Patient had onset of spontaneous labor. She had a normal progress of labor and artificial rupture of membranes for clear fluid at approximately 10:30 AM. She progressed to the point that she was completely dilated, and with good maternal effort she pushed with 3 contractions over an intact perineum. There was no evidence of nuchal cord and the shoulders followed with ease. Three-vessel cord was noted. Patient received Pitocin intravenously for reduction and hemorrhage and her placenta delivered manually and was found to be intact. She had significantly long delayed cord clamping at the patient's request. Uterus was firm and below the umbilicus after delivery. She had a very small first- degree perineal laceration which was hemostatic and not repaired. Qualitative blood loss was 100 mL. Both mom and baby were in stable condition postdelivery bonding appropriately. Providers Doctor: Pauline Damon Nurse: Eneida Keller Nurse: Dunia Cox Labor/Delivery Information Number of Babies in Womb: 1 Steroids Given: None Reason Steroids Not Administered: N/A Group Beta Strep: Negative Antibiotics Administered: No Rubella Status: Immune Blood Type: O+ Varicella Immunity: Immune Stages of Labor Onset of Labor Date: 06/10/22 Onset of Labor Time: 02:30 Complete Dilatation Date: 06/10/22 Complete Dilatation Time: 11:45 Labor - Stage 1 Duration: 9 hours and 15 minutes ROM Baby A: 06/10/22 ROM Baby A: 10:30 ROM Total Time- Baby A: [id number] Infant Delivery Date-Baby A: 06/10/22 Infant Delivery Time-Baby A: 11:50 Labor Stage 2 Duration: 5 minutes Placenta Delivery Date-Baby A: 06/10/22 Placenta Delivery Time-Baby A: 11:58 Labor-Stage 3 Duration: 8 minutes Total Length of Labor-Baby A: 9 hours and 20 minutes Placenta Status: Delivered Baby A Infant Gender: Male Gestational Status: Term (39-41.6 wks) Gestational Age in Weeks/Days: 39 Weeks and 4 Days Score-1 Minute Interval(Baby A) Heart Rate-1 minute: 100 BPM or Greater Respiratory Effort- 1 minute: Slow Respiration/Weak Cry Muscle Tone-1 minute: Active Movement Reflex Response-1 minute: Prompt Response Color-1 minute: Pallor or Cyanosis Total Score-1 minute: 7 Score-5 Minute Interval(Baby A) Heart Rate- 5 minute: 100 BPM or Greater Respiratory Effort-5 minute: Spontaneous/Strong Cry Muscle Tone-5 minute: Active Movement Reflex Response-5 minute: Prompt Response Color-5 minute: Pallor or Cyanosis Total Score- 5 minute: 8
[2022-06-10] MEDS: Dibucaine 1% 28 GM TUBE TP (14:51)
[2022-06-10] MEDS: Hamamelis Leaf/Glycerin 100 EACH BOX PR (14:52)
[2022-06-10] MEDS: Ibuprofen 600 MG TAB PO (14:52)
[2022-06-10] MEDS: Escitalopram 20 MG TAB PO (20:08)
[2022-06-11 00:05] VITALS: TEMP 36.8
[2022-06-11] MEDS: Ibuprofen 600 MG TAB PO ×4 (00:05→21:03)
[2022-06-11] MEDS: Acetaminophen 325 MG TAB 650 MG PO ×2 (05:48→09:55)
[2022-06-11 07:16] LABS: HCT 30.7 % (36.0-46.0); HGB 10.1 g/dL (11.2-15.7); MCH 30.7 pg (27.0-33.0); MCHC 32.9 % (32.0-36.0); MCV 93 fL (80-95); MPV 12.7 fL (8.0-11.0); Platelet Count 129 10^3/uL (130-400); RBC 3.29 10^6/uL (3.93-5.22); RDW 13.1 % (11.7-14.6); RDW-SD 44.1 fL; WBC 7.48 10^3/uL (4.4-10.8)
--- NOTE | 2022-06-11 08:36 | W.NUTRFU ---
Date of service: 06/11/22 Time of Service: 08:36 Nutrition Note NOTE: Ms. Gabriel reports that she generally cannot have gluten but does eat oatmeal, so we have been sending oatmeal. Time Spent in Nutritional Counseling and Treatment: 0
[2022-06-11 09:15] VITALS: BP 110/73; PULSE 82; RESP 18; TEMP 36.6; O2SAT 99
[2022-06-11] MEDS: Prenatal Multivitamin w/CA,FE TAB 1 TAB PO (09:56)
--- NOTE | 2022-06-11 10:51 | W.PM.OBPNV1 ---
Date of service: 06/11/22 Time of Service: 10:51 Assessment and Plan Assessment and plan (1) Normal spontaneous vaginal delivery: Status: Acute Assessment and plan: day #1 status postnormal spontaneous vaginal delivery. Anticipate discharge home today. All questions answered. Breast-feeding without difficulty. Exam Physical Exam Vital signs: Temp Pulse Resp BP Pulse Ox 97.9 F 82 18 110/73 99 06/11/22 09:15 06/11/22 09:15 06/11/22 09:15 06/11/22 09:15 06/11/22 09:15 Vital Signs Reviewed: Yes Constitutional Constitutional: no acute distress HEENT Exam HEENT Exam: Normal Neck Exam Neck Exam: Normal Respiratory Exam Respiratory Exam: Normal Cardiovascular Exam Cardiovascular Exam: Normal Abdominal Exam Comments: Soft, nontender Fundal Exam Fundus: Below Umbilicus and Firm Extremities Exam Extremity Exam: Normal; negative Calf Tenderness or Edema Skin Exam Skin Exam: Normal Neurological Exam Neurological Exam: Normal Psychiatric Exam Psychiatric Exam: Normal Results Hemoglobin/Hematocrit: Hgb 10.1 g/dL (11.2-15.7) L 06/11/22 06:50 Hct 30.7 % (36.0-46.0) L 06/11/22 06:50 Abnormal Lab Findings: Abnormal Labs 06/10/22 06/11/22 03:02 06:50 RBC 3.51 L 3.29 L Hgb 11.0 L 10.1 L Hct 32.7 L 30.7 L Plt Count 116 L 129 L MPV 12.8 H 12.7 H
--- NOTE | 2022-06-11 10:56 | DSE_ITS ---
Date of service: 06/11/22 Time of Service: 10:56 DS: Diagnosis Discharge Diagnosis (1) Normal spontaneous vaginal delivery: Status: Acute Asessment and Plan: day 1 status postnormal spontaneous vaginal delivery. Discharge home today. All questions were answered. Discharge Plan Disposition Patient Disposition: Home Condition: Good Discharge Details Reason For Visit: Labor Admit Date/Time: 06/10/22 01:40 Admit Provider: Lali Hu Attending Provider: Lali Hu Primary Care Provider: Macario Bacon Hospital Course Hospital Course: Patient was admitted in active labor. She progressed to the normal course of labor. She received nitrous oxide for analgesia. She went on to be completely dilated after artificial rupture of membranes for clear fluid. She delivered a viable male without difficulty. She was discharged home postoperative day #1 ambulating, tolerating regular diet and oral pain medication. She will be seen back in the office in 2 and 6 weeks. All questions were answered. She is overall doing very well Home Meds and New Rx's Prescriptions: New ibuprofen 800 mg tablet 800 mg PO Q8H PRNQty: 30 1RF Continued prenat.vits,rubio,yfn-rjuo-txzbd Tablet 1 tab PO DAILY blood builder tablet 2 tab PO DAILY cholecalciferol (vitamin D3) [Vitamin D3] 25 mcg (1,000 unit) capsule 25 mcg PO DAILY escitalopram oxalate 20 mg tablet 20 mg PO DAILY Qty: 30 3RF Discontinued Boostrix Tdap 2.5-8-5 Lf-mcg-Lf/0.5mL syringe 0.5 ml IM ONCE Qty: 0.5 0RF No Action (DME) blood-glucose meter [Advanced Glucose Meter] Misc See Rx Instructions .Route Qty: 1 0RF Rx Instructions: As directed (DME) Advanced Gluc Meter Test Strip Strip See Rx Instructions .Route Qty: 100 0RF Rx Instructions: As directed (DME) lancets [Advanced Travel Lancets] 30 gauge misc See Rx Instructions .Route Qty: 100 0RF Rx Instructions: As directed Discharge Instructions Stand Alone Forms: BC Instructions, BC Post Vaginal Deliver Activity:: Pelvic rest Equipment/Supplies:: No Equipment Needed Diet:: As Tolerated OB:DS Summary Summary Vaginal Delivery Method: Spontaneaous Episiotomy Description: None Laceration Description: None Contraception Discussed Contraception Discussed: Yes Contraceptive Plan: Undecided, Gender-Baby A: Male weight: 6 lb 2.414 oz Status at Discharge Functional status at discharge: independent ambulation Overall status at discharge: patient is back to baseline Mental Status: mental status grossly normal Speech and Movement: speech and movement normal Mood: congruent mood Affect: normal affect Exam Physical Exam Vital signs: Temp Pulse Resp BP Pulse Ox 97.9 F 82 18 110/73 99 06/11/22 09:15 06/11/22 09:15 06/11/22 09:15 06/11/22 09:15 06/11/22 09:15 Vital Signs Reviewed: Yes Narrative: Please see physical exam from progress note dated 06/11/2022 PFS All Active Problems (Updated 06/11/22 @ 10:53 by Pauline Damon DO) Normal spontaneous vaginal delivery (Acute) Normal labor (Acute) Uterine contractions (Acute) Previous baby was small for gestational age (Acute) Elevated glucose tolerance test (Acute) Graves' disease (Chronic) Dx ? 2016. Rx with Methimazole 5mg/day.(Usual dose 30mg/day) TSH ok with current dose. Previous thyroid u/s: no cancerous nodules. 08/08/19. Change to PTU 50mg/day (usual dose 100mg/TID) Recheck TSH in 4w. Antibody testing: PTSD (post-traumatic stress disorder) (Acute) Anxiety associated with depression (Acute) Elderly multigravida, currently (Acute) Latex allergy (Acute) (Acute) Gestational diabetes (Acute) Medical History (Updated 06/11/22 @ 10:53 by Pauline Damon DO) Allergy to banana Allergy to marielle fruit At risk for depressed mood during period anxiety after third Gluten intolerance Hip pain Lactose intolerance Pelvic pain Rotator cuff arthropathy of right shoulder injury and PT 05/2019 Surgical History History of ankle surgery 2009 Hx of tonsillectomy 1989 Family History Father No problems noted. Mother Diabetes pre-diabetic Hypertension Maternal Grandmother Diabetes Type 2 Sister Arrhythmia heart ablation Aunt Breast cancer Pos. BRCA Several others in father's family pos for BRCA Social History (Updated 08/08/19 @ 21:01 by Lali Hu MD) Smoking/Tobacco Use Status: Former Tobacco Use Tobacco: How many years used: 3 Quit status: has quit before Smoking risk assessment performed?: Yes Alcohol Intake: never Drug use: Never Substance use type: does not use Household members: spouse, children and other Details: Shai [id number] dad. 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 Date GA/Weeks # Preg Succ Route Wgt Sex Labor Lgth Anesth esia Location Prov Complic 09/28/05 39 No Yes vaginal 7 lb 5 oz Male [facility] [place] 08/21/07 10/22/08 39 No Yes vaginal 7 lb 5 oz Male [facility] [place] 08/22/11 02/16/13 41 No Yes vaginal 6 lb 10 oz Female 8 hrs [place] [place] , [place] 04/08/20 40 No Yes vaginal 5 lb 2 oz Male [address] Ozuna and Sheree Law CNM Delivery Date: 09/28/05 Last Updated by: Lea Law CNM Pitocin augmentation Delivery Date: 08/21/07 Last Updated by: Lea Law CNM SAB Delivery Date: 08/22/11 Last Updated by: Lea Law CNM SAB Delivery Date: 02/16/13 Last Updated by: Lea Law CNM Home , no complications Delivery Date: 04/08/20 Last Updated by: Lea Law CNM vaginal breech, Precipitous labor and . pt has had PTSD since this delivery DS: Data Vitals/I&O Vitals and I&O: Vital Signs Temperature 97.9 F 06/11/22 09:15 Pulse 82 06/11/22 09:15 Pulse Rhythm Regular 06/11/22 09:15 Respiratory Rate 18 06/11/22 09:15 Blood Pressure 110/73 06/11/22 09:15 Blood Pressure Mean 85 06/11/22 09:15 Pulse Oximetry 99 06/11/22 09:15 Oxygen Delivery Method Room Air 06/10/22 02:53 Oxygen Flow Rate 0 06/10/22 02:53 Pain Level 1 06/11/22 09:15 Intake & Output 06/10/22 06/10/22 06/11/22 11:59 23:59 11:59 Output Total 300 / 300 Balance -300 / -300 Weight 199 lb Output: Urine 300 / 300 Other: Urine Color Yellow Yellow Data Completed and Pending Labs on day of discharge: Labs from last 24 hours 06/11/22 06:50 WBC 7.48 RBC 3.29 L Hgb 10.1 L Hct 30.7 L MCV 93 MCH 30.7 MCHC 32.9 RDW 13.1 Plt Count 129 L MPV 12.7 H
[2022-06-11 13:48] VITALS: BP 120/77; PULSE 76; RESP 14; TEMP 36.5
[2022-06-11 16:50] VITALS: BP 103/62; PULSE 64; RESP 14; TEMP 36.5
[2022-06-11] MEDS: Escitalopram 20 MG TAB PO (19:34)
[2022-06-11 19:56] VITALS: BP 101/66; PULSE 70; RESP 16; TEMP 36.8; O2SAT 97
[2022-06-12 07:06] VITALS: BP 124/66; PULSE 101; TEMP 36.7
[2022-06-12 08:22] VITALS: BP 109/75; PULSE 70; RESP 20; TEMP 36.6; O2SAT 97
[2022-06-12] MEDS: Ibuprofen 600 MG TAB PO (08:24)
[2022-06-12] MEDS: Prenatal Multivitamin w/CA,FE TAB 1 TAB PO (08:25)
== END 2022-06-12 13:45 | disposition home or self-care (01) | DRG 807 ==
PROVIDERS: Obstetrics & Gynecology; Admitting Provider Obstetrics & Gynecology Gynecology; PCP Naturopath; Visit Provider Obstetrics & Gynecology Gynecology
DX: O99.284 Endocrine, nutritional and metabolic diseases complicating childbirth (principal); Z37.0 Single live birth; O99.344 Other mental disorders complicating childbirth; F41.8 Other specified anxiety disorders; O70.0 First degree perineal laceration during delivery; Z3A.39 39 weeks gestation of pregnancy; F43.12 Post-traumatic stress disorder, chronic; E05.00 Thyrotoxicosis with diffuse goiter without thyrotoxic crisis or storm
CPT/HCPCS: 36415; 85027; 86850; 86900; 86901; 87635

== ENCOUNTER 2022-08-01 03:09 | Outpatient (CLI) | payer OTHER, MEDICAID, SELFPAY ==
[2022-08-01 12:04] LABS: Abs Immature Grans 0.01 10^3/uL (0.0-0.06); Absolute Basophil Count 0.02 10^3/uL (0.0-0.2); Absolute Eosinophil Count 0.11 10^3/uL (0.0-0.7); Absolute Lymphocyte Count 1.49 10^3/uL (1.2-3.4); Absolute Monocyte Count 0.56 10^3/uL (0.1-0.8); Absolute Neutrophil Count 2.88 10^3/uL (1.2-6.7); Basophils % 0.4; Eosinophils % 2.2; HCT 35.6 % (36.0-46.0); HGB 11.8 g/dL (11.2-15.7); Immature Grans % 0.2; Lymphocytes % 29.4; MCH 29.7 pg (27.0-33.0); MCHC 33.1 % (32.0-36.0); MCV 90 fL (80-95); MPV 12.1 fL (8.0-11.0); Neutrophils % 56.8; Platelet Count 159 10^3/uL (130-400); RBC 3.97 10^6/uL (3.93-5.22); RDW 12.4 % (11.7-14.6); RDW-SD 40.9 fL; WBC 5.07 10^3/uL (4.4-10.8)
== END 2022-08-01 03:10 | disposition home or self-care (01) ==
LOC: LBO 03:09
PROVIDERS: PCP Naturopath; Visit Provider Obstetrics & Gynecology
DX: Z30.09 Encounter for other general counseling and advice on contraception (principal); Z01.818 Encounter for other preprocedural examination; Z01.812 Encounter for preprocedural laboratory examination; Z30.2 Encounter for sterilization
CPT/HCPCS: 36415; 86850; 86900; 86901; 85025

== ENCOUNTER 2022-08-03 07:36 | Day surgery (SDC) | payer OTHER, MEDICAID, SELFPAY ==
[2022-08-03] VITALS (9 sets, daily range): BP systolic 93–113; BP diastolic 47–83; PULSE 56–76; RESP 12–20; TEMP 36.3–37.1; O2SAT 95–99; BMI 30.1
[2022-08-03] MEDS: Lactated Ringers 1,000 ML 125 ML IV (08:05)
--- NOTE | 2022-08-03 08:25 | W.ANESPRE ---
General Info Date of Service Date Performed: 08/03/22 Height: 5 ft 7 in Weight: 87.27 kg Body Mass Index (BMI): 30.1 Surgical Procedure: Operation Date: 08/03/22 08:40 Proposed Procedure Side Surgeon p Salpingectomy Laparoscopic Bilateral Pauline Damon DO Meds Allergies and Home Medications Allergies Allergy/AdvReac Type Severity Reaction Status Date / Time latex Allergy Severe hives Verified 08/02/22 13:39 adhesive tape Allergy Intermediate rash Verified 08/02/22 13:39 coffee (Coffea arabica) Allergy Mild Unverified 08/02/22 13:39 nickel Allergy Skin Rash Verified 08/02/22 13:39 carrageenan AdvReac Intermediate Unverified 08/02/22 13:39 gluten AdvReac Intermediate Verified 08/02/22 13:39 avocado AdvReac Mild Unverified 08/02/22 13:39 banana AdvReac Mild Unverified 08/02/22 13:39 marielle AdvReac Mild Unverified 08/02/22 13:39 tomato AdvReac Mild Unverified 08/02/22 13:39 eggs Allergy Other (See Uncoded 08/02/22 13:39 Comment) dairy AdvReac Severe Uncoded 08/02/22 13:39 Home Medication Medication Instructions Recorded cholecalciferol (vitamin D3) 25 25 mcg PO DAILY 08/08/19 mcg (1,000 unit) capsule (Vitamin D3) prenat.vits,rubio,ikl-drob-znbti 1 tab PO DAILY 11/12/21 ibuprofen 800 mg tablet 800 mg PO Q8H PRN #30 tabs 06/11/22 escitalopram oxalate 20 mg tablet 40 mg PO DAILY #120 tabs 07/01/22 (Lexapro) Current Visit Medications: Current Medications Generic Name Dose Route Start Last Admin Trade Name Freq PRN Reason Stop Dose Admin Ringer's Solution 1,000 mls @ 125 mls/hr 08/03/22 06:00 08/03/22 08:05 IV 09/01/22 23:59 125 mls/hr INFUSION ADRI Administration IV Miscellaneous Supplies 1 each 08/03/22 06:00 Iv Access IV 09/01/22 23:59 DIRECTED ADRI Sodium Chloride 0 ml 08/03/22 06:00 Normal Saline Flush 10 Ml Syr IV 09/01/22 23:59 PRN PRN Sodium Chloride 0 ml 08/03/22 06:00 Normal Saline 10 Ml Vial IJ 09/01/22 23:59 DIRECTED PRN Sterile Water 0 ml 08/03/22 06:00 Water,Injection,Sterile 10 Ml Vial IJ 09/01/22 23:59 DIRECTED PRN PFSH Active Problems Active Problems: Problem Status Onset Code Graves' disease E05.00 PTSD (post-traumatic stress disorder) F43.10 Anxiety associated with depression F41.8 Latex allergy Z91.040 Z34.90 Gestational diabetes O24.419 Elevated glucose tolerance test R73.09 Previous baby was small for gestational age Z87.59 Normal spontaneous vaginal delivery O80 History of gestational diabetes mellitus (GDM) Z86.32 BRCA1 genetic carrier Z15.01, Z15.09 Sterilization consult Z30.09 Medical History Medical History Allergy to banana Allergy to marielle fruit At risk for depressed mood during period anxiety after third Gluten intolerance Hip pain Lactose intolerance Pelvic pain PTSD (post-traumatic stress disorder) Per pt. stated the big thing is communication. Rotator cuff arthropathy of right shoulder injury and PT 05/2019 Medical History Comments:: Per pt. states she wakes up emotional Surgical History Surgical History History of ankle surgery 2010 Hx of tonsillectomy 1989 Tobacco Smoking/Tobacco Use Status: Former Tobacco Use Passive smoking exposure: No Alcohol Alcohol Intake: never Substance Use Substance use: Never Substance use type: does not use Prental History History 7 Para 4 Hx # Term Pregnancies 4 Multiple births 0 Hx # Pregnancies 0 Ectopic pregnancies 0 AB induced 0 Hx Number of Living Children 4 AB spontaneous 2 Past Pregnancies Del. Date GA/Weeks # Preg Succ Route Wgt Sex Labor Lgth Anesthesia Location [facility] 09/28/05 39 No Yes vaginal 3316.894 g Male 28 [facility] 08/21/07 10/22/08 39 No Yes vaginal 3316.894 g Male 20 [facility] 08/22/11 02/16/13 41 No Yes vaginal 3005.049 g Female 8 hrs home , [place] 04/08/20 40 No Yes vaginal 2324.661 g Male [address] Anne Law CNM 06/10/22 39 No Yes vaginal 2789.877 g Male Delivery Date: 09/28/05 Last Updated by: Lea Law CNM Pitocin augmentation Delivery Date: 08/21/07 Last Updated by: Lea Law CNM SAB Delivery Date: 08/22/11 Last Updated by: Lea Law CNM SAB Delivery Date: 02/16/13 Last Updated by: Lea Law CNM Home , no complications Delivery Date: 04/08/20 Last Updated by: Lea Law CNM vaginal breech, Precipitous labor and . pt has had PTSD since this delivery Vital Signs and Lab Results Vital Signs Most Recent Vital Signs in EMR: Most Recent Vital Signs Temp Pulse Resp BP Pulse Ox 36.7 C 76 18 113/75 98 08/03/22 07:51 08/03/22 07:51 08/03/22 07:51 08/03/22 07:51 08/03/22 07:51 Point of Care Results Point of Care Results: POC- Test(urine) Negative 08/03/22 07:51 Lab Results Blood Type / Crossmatch: Patient ABO/Rh O Positive 08/01/22 Antibody Screen NEGATIVE 08/01/22 Complete Blood Count: White Blood Count 5.07 10^3/uL (4.4-10.8) 08/01/22 11:50 Red Blood Count 3.97 10^6/uL (3.93-5.22) 08/01/22 11:50 Hemoglobin 11.8 g/dL (11.2-15.7) 08/01/22 11:50 Hematocrit 35.6 % (36.0-46.0) L 08/01/22 11:50 Platelet Count 159 10^3/uL (130-400) 08/01/22 11:50 Complete Metabolic Panel: No Data to Display Liver Function Panel: No Data to Display Coagulation Panel: No Data to Display Cardiac Panel: No Data to Display Arterial Blood Gas: No Data to Display Venous Blood Gas: No Data to Display Pancreas Panel: No Data to Display Thyroid Panel: No Data to Display Infectious Disease: No Data to Display Blood Cultures: No Data to Display Toxicology Panel: No Data to Display Panel: No Data to Display Anesthesia Assessment and Plan Anesthesia History Personal History: Other Family History: No Family History of Anesthesia Complications Exercise Tolerance Exercise Tolerance: Metabolic Equivalents>4 Pertinent Negatives Pertinent Negatives: No Symptoms of GERD, No Major Cardiovascular Symptoms or Complaints, No Major Pulmonary Symptoms or Complaints and No History of CVA/TIA Cardiac & Pulmonary Exam Cardiac Exam: Normal S1/S2 Heart Sounds Pulmonary Exam: Clear Bilateral Breath Sounds Implantable Cardiac Device Does patient have a Pacemaker or an ICD?: No Airway Exam Known Difficult Airway: No Mallampati Class: 2 Mouth Opening: Normal (> 3cm) Thyromental Distance: Greater than 3 cm Neck Range of Motion: Full ROM Neck Circumference: Normal Teeth Condition: Normal Dentition ASA Classification ASA Score: ASA 2 Emergency Case?: No NPO Status NPO Status: NPO Clears >2 hours, Solids >8 hours Status Status: Negative HCG Anesthesia Plan Resuscitation Status: Full Code Anesthesia Technique: General Anesthesia Airway Planned: Endotracheal Tube Monitors Used: Standard Monitors
[2022-08-03] MEDS: Bupivacaine 0.25% Pres-Free 30 ML VIAL (09:24)
--- NOTE | 2022-08-03 09:31 | FALL_PTH ---
PATIENT: Anita Gabriel LOC: [facility] U#:[id number] AGE/SX: 37/F ROOM: RE08/03/[address]: Pauline Damon DO : 1985 BED: DIS: 08/03/2022 SPEC #: [id number] RECD: 08/03/22 12:59 STATUS: TREMAYNE RE #: [id number] CAMERON: 08/03/22 09:[address]: Pauline Damon DEPT: Surgical Specimen RECD BY: Nazia Victoria ENTERED: 08/03/22 13:01 SP TYPE: Fall OTHR DR: Macario Bacon Tissues: 1 - FALLOPIAN TUBE (STERILIZATION) 2 - FALLOPIAN TUBE (STERILIZATION) Procedures: GROSS AND MICRO LEVEL 2 Comments: [id number]
--- NOTE | 2022-08-03 09:47 | W.PM.OP ---
Date of service: 08/03/22 Time of Service: 09:47 Operative Note Operative Note DATE OF PROCEDURE: 08/03/22 PRE-OP DIAGNOSIS: Undesired fertility, BRCA carrier POST-OP DIAGNOSIS: same PROCEDURE: Laparoscopic bilateral salpingectomy SURGEON: Pauline Damon SAWMILL EQUIPMENT OPERATOR: Heidi Thomas ANESTHESIA TYPE: Local By Surgeon and General LMA/ETT Refer to Anesthesia Record ESTIMATED BLOOD LOSS: 5 PATHOLOGY: other (1. Right fallopian tube 2. Left fallopian tube) COMPLICATIONS: None Patient was transported to: PACU Patient's condition: stable Indications: Undesired fertility, BRCA risk reduction surgery Findings: Normal-appearing uterus, fallopian tubes, ovaries. No intra-abdominal pathology noted Procedure Description: After full informed consent was obtained, patient was taken the operating suite with an IV running. She was placed in the dorsal supine position and endotracheal intubation performed for the administration of general anesthesia with ease. She was then placed in the modified dorsal lithotomy position with pneumatic compression stockings for DVT prophylaxis. She was prepped and draped in the usual sterile fashion. Exam under anesthesia revealed a uterus that was midline and mobile without evidence of adnexal masses. At this point speculum was placed into the posterior vaginal vault and a single-tooth tenaculum used to grasp the anterior lip of the cervix. [employer] uterine manipulator was placed and the speculum and tenaculum were then removed. Attention was then turned to the abdomen where after instillation of quarter percent Marcaine a vertical umbilical skin incision was made to accommodate a 10 mm port. Sharp towel clips were used to elevate the anterior abdominal wall and a varies needle inserted directly into the abdomen. With a maximum pressure of 15 mmHg and pneumoperitoneum was created with CO2 gas. Under direct visualization a 10 mm camera was placed for visualization. The entire abdomen and pelvis were inspected and found to be free of trauma or disease. A second and third meticulously placed right and left lower quadrant trocar site were placed under direct visualization after infiltration of quarter percent Marcaine. At this point the uterus was elevated. Right fallopian tube identified and cautery transected. This fallopian tube was removed from the abdomen through the 10 mm port. Similar procedure was carried out on the left fallopian tube. At the completion of the procedure, all pedicles were noted to be hemostatic. The entire abdomen was inspected and noted to be free of disease. Pneumoperitoneum was released and at low pressure pedicles again were inspected and found to be hemostatic. At this point all trocars were removed from the abdomen. The fascial incision of the umbilical incision was closed using 0 Vicryl suture in a cjckji-kr-bjrcv fashion. Skin edges were reapproximated and skin affix and sterile dressings were placed. [employer] uterine manipulator was removed from the uterus. Patient was returned to the dorsal supine position and awoke from anesthesia with ease. She was taken to the postanesthesia care unit in stable condition. Findings: Normal-appearing fallopian tubes, ovaries, uterus. No evidence of intra-abdominal pathology noted. Complications: None apparent EBL: 5 mL Pathology: 1. Right fallopian tube 2. Left fallopian tube. Fluids: Crystalloid per anesthesia
[2022-08-03] MEDS: fentaNYL 100 MCG/2 ML VIAL IVP (10:04)
[2022-08-03] MEDS: oxyCODONE 5 mg/Acetaminophen 325 mg TAB 1 TAB PO (11:16)
--- NOTE | 2022-08-03 13:01 | W.ANESPOSTOP ---
Postoperative Evaluation Date, Time and Location Date Performed: 08/03/22 Time Performed: 13:01 Patient Location: Day Surgery Unit Vital Signs Most Recent Imported Vital Signs: Most Recent Vital Signs Temp Pulse Resp BP Pulse Ox 36.5 C 74 16 103/67 95 08/03/22 11:52 08/03/22 11:52 08/03/22 11:52 08/03/22 11:52 08/03/22 11:52 Pain Score Most Recent Pain Score: Most Recent Pain Score Pain Level 3 08/03/22 11:10 Assessment Mental Status: Awake (Alert & Oriented to Patient Baseline) Airway and Respiratory Function: Patent airway with normal (patient baseline) respiratory exam Cardiovascular Function: Hemodynamically Stable Hydration Status: Adequately Hydrated Nausea & Vomiting: No Nausea or Vomiting Pain: Pain is tolerable per patient Peripheral Nerve Block: Patient did not receive a nerve block
== END 2022-08-03 12:41 | disposition home or self-care (01) ==
PROVIDERS: PCP Naturopath; Visit Provider Obstetrics & Gynecology
PROC: (CPT 58661; principal; 2022-08-03 08:30)
DX: Z30.2 Encounter for sterilization (principal); Z14.8 Genetic carrier of other disease; N83.8 Other noninflammatory disorders of ovary, fallopian tube and broad ligament
CPT/HCPCS: 58661; 81025; 88302; J1100; J1885; J2250; J2405; J2704; J3010

== ENCOUNTER 2022-10-14 08:34 | Outpatient (CLI) | payer OTHER, MEDICAID, SELFPAY ==
[2022-10-14 07:33] LABS: Abs Immature Grans 0.01 10^3/uL (0.0-0.06); Absolute Basophil Count 0.02 10^3/uL (0.0-0.2); Absolute Eosinophil Count 0.14 10^3/uL (0.0-0.7); Absolute Monocyte Count 0.43 10^3/uL (0.1-0.8); Absolute Neutrophil Count 3.88 10^3/uL (1.2-6.7); Basophils % 0.3; Eosinophils % 2.2; HCT 39.2 % (36.0-46.0); HGB 12.8 g/dL (11.2-15.7); Immature Grans % 0.2; Lymphocytes % 30.9; MCH 29.2 pg (27.0-33.0); MCHC 32.7 % (32.0-36.0); MCV 89 fL (80-95); MPV 11.3 fL (8.0-11.0); Monocytes % 6.6; Neutrophils % 59.8; Platelet Count 200 10^3/uL (130-400); RBC 4.39 10^6/uL (3.93-5.22); RDW 12.9 % (11.7-14.6); RDW-SD 42.3 fL; WBC 6.48 10^3/uL (4.4-10.8)
[2022-10-14 08:13] LABS: ALT 29 U/L (14-59); AST 20 U/L (15-37); Alkaline Phosphatase 123 U/L (46-116); BUN 30 mg/dL (7-18); Bilirubin, Total 0.4 mg/dL (0.2-1.0); CREATININE 1.2 mg/dL (0.55-1.02); Calcium 8.5 mg/dL (8.5-10.1); Chloride 102 mmol/L (98-107); Estimated GFR 59.42 (mL/min/1.73m2); Ferritin 22 ng/mL (8-252); Glucose 168 mg/dL (74-106); Potassium 3.8 mmol/L (3.5-5.1); Sodium 138 mmol/L (136-145); T4 6.9 ug/dL (4.7-13.3); TSH 1.24 uIU/mL (0.36-3.74); Total Protein 8.3 g/dL (6.4-8.2)
[2022-10-14 08:20] LABS: Iron 66 ug/dL (50-170); Total Iron Binding Capacity 418 ug/dL (250-450)
[2022-10-14 20:11] LABS: T3,Free 3.8 pg/mL (2.8-5.3)
== END 2022-10-14 08:35 | disposition home or self-care (01) ==
LOC: LBO 08:37
PROVIDERS: PCP Naturopath; Visit Provider Naturopath
DX: E05.00 Thyrotoxicosis with diffuse goiter without thyrotoxic crisis or storm (principal); Z39.2 Encounter for routine postpartum follow-up
CPT/HCPCS: 80053; 82728; 83540; 83550; 84436; 84443; 84481; 85025

== ENCOUNTER 2022-12-04 14:09 | Outpatient (REF) | payer OTHER, MEDICAID, SELFPAY ==
[2022-12-04 16:42] LABS: Vitamin D 25 Total 26.7 ng/mL (30-100)
[2022-12-04 16:45] LABS: ALT 25 U/L (14-59); AST 21 U/L (15-37); Alkaline Phosphatase 128 U/L (46-116); Anion Gap 9.8 mmol/L (3-11); BUN 23 mg/dL (7-18); Bilirubin, Total 0.3 mg/dL (0.2-1.0); CO2 30.2 mmol/L (21.0-32.0); CREATININE 1.6 mg/dL (0.55-1.02); Calcium 8.6 mg/dL (8.5-10.1); Chloride 100 mmol/L (98-107); Estimated GFR 42.07 (mL/min/1.73m2); Folate 12.9 ng/mL (8.6-20.0); Glucose 87 mg/dL (74-106); Potassium 4.1 mmol/L (3.5-5.1); Sodium 140 mmol/L (136-145); Total Protein 7.8 g/dL (6.4-8.2); Vitamin B12 673 pg/mL (193-986)
== END 2022-12-04 14:10 | disposition home or self-care (01) ==
LOC: LBN 14:09
PROVIDERS: PCP Naturopath; Visit Provider Naturopath
DX: E55.9 Vitamin D deficiency, unspecified (principal); F53.0 Postpartum depression; R79.89 Other specified abnormal findings of blood chemistry
CPT/HCPCS: 80053; 82306; 82607; 82746

== ENCOUNTER 2023-01-06 09:58 | Outpatient (CLI) | payer OTHER, MEDICAID, SELFPAY ==
[2023-01-06 15:27] LABS: Bilirubin Negative (Negative); Blood Negative (Negative); Clarity Clear (Clear); Glucose Negative (Negative); Ketones Negative (Negative); Leukocyte Esterase Small (Negative); Nitrite Negative (Negative); Urobilinogen 0.2 mg/dL (Up to 0.2)
[2023-01-06 15:39] LABS: Bacteria Negative HPF (Negative); C & S Indicated? No/Sq. Contamination; Crystals Negative HPF (Negative); Epithelial Cells Many HPF (Negative); Mucus Negative (Negative); Other Cells Few Transitional (Negative); RBC Negative HPF (0-2)
[2023-01-06 17:54] LABS: Ferritin 28 ng/mL (8-252); Magnesium 1.8 mg/dL (1.8-2.4); T4 7.4 ug/dL (4.7-13.3); TSH 3.09 uIU/mL (0.36-3.74)
== END 2023-01-06 09:59 | disposition home or self-care (01) ==
LOC: LBO 09:58 → LBN 17:26
PROVIDERS: PCP Naturopath; Visit Provider Naturopath
DX: E05.00 Thyrotoxicosis with diffuse goiter without thyrotoxic crisis or storm (principal); R00.2 Palpitations; N17.9 Acute kidney failure, unspecified; R82.998 Other abnormal findings in urine; R79.89 Other specified abnormal findings of blood chemistry
CPT/HCPCS: 81003; 81015; 82728; 83735; 84436; 84443; 84481

== ENCOUNTER 2023-01-20 11:22 | Outpatient (RCR) | payer OTHER, MEDICAID, SELFPAY ==
--- NOTE | 2023-01-20 11:15 | HOLTER_ITS ---
APPROVED REPORT Conclusion This Holter monitor was ordered for palpitations. Patient was monitored for 1 day and 3 hours Rhythm throughout was sinus. Average heart rate was 79. Minimum was 61, maximum 108 There were no ventricular or supraventricular dysrhythmias There was no atrial fibrillation, no SVT, no high-grade AV block, no pauses greater than 3 seconds No patient symptoms were reported
== END 2023-02-18 23:59 | disposition home or self-care (01) ==
LOC: CARDOPNVT 11:22
PROVIDERS: PCP Naturopath; Visit Provider Naturopath
DX: R00.2 Palpitations (principal)
CPT/HCPCS: 93225; 93226

== ENCOUNTER → 2023-02-15 14:03 | Outpatient (CLI) | payer OTHER, MEDICAID, SELFPAY ==
--- NOTE | 2023-02-15 | DI.RAD_ITS ---
Exam(s) XR CHEST 2V PA LATERAL EXAM: XR CHEST 2V PA LATERAL CLINICAL HISTORY: COUGH, R05.8, ONGOING X 2 WKS, STARTED COVID, NOW ? PNEUMONIA TECHNIQUE: 2D digital imaging was performed of the chest. Two images were obtained. PA and lateral views were obtained. COMPARISON: No exams were available for comparison FINDINGS: MEDIASTINUM: Normal. HEART: Normal. PULMONARY VASCULATURE: Normal. LUNGS: Clear. PLEURAL SPACE: No pleural effusion or pneumothorax. BONE:Within normal limits for the patient's age. OTHER FINDINGS:Normal. IMPRESSION: No acute pulmonary findings. DATA REPOSITORY: RADIATION DOSE DELIVERED:
== END ==
PROVIDERS: PCP Naturopath; Visit Provider Physician Assistant Medical
DX: R05.8 Other specified cough (principal)
CPT/HCPCS: 71046

== ENCOUNTER 2023-08-02 19:00 | Emergency (ER) | payer OTHER, MEDICAID, SELFPAY ==
--- NOTE | 2023-08-02 19:00 | DI.CT_ITS ---
Exam(s) CT ABDOMEN PELVIS W EXAM: CT ABDOMEN PELVIS W CLINICAL HISTORY: RUQ abd Pain. TECHNIQUE: Imaging Protocol: Axial computed tomography images with coronal and sagittal reformatted images were created and reviewed CONTRAST MATERIAL: Intravenous: Omnipaque-350 100cc Oral: None COMPARISON: No exams were available for comparison FINDINGS: VISUALIZED LUNG BASES: No nodules nor pleural effusions evident. ABDOMEN: There is no ascites. LIVER: There are no focal hepatic lesions evident. No dilated intrahepatic ducts. GALLBLADDER/BILIARY: No obvious gallbladder pathology. CBD is not dilated. PANCREAS: No evidence of pancreatic mass nor dilatation of the pancreatic duct. SPLEEN: Spleen is not enlarged. No obvious intrasplenic lesions. Splenic and portal veins are paten t. ADRENALS: There are no significant adrenal masses. KIDNEYS:No cysts evident. No solid renal masses. No calculi nor hydronephrosis.. ABDOMINAL AORTA: Abdominal aorta is not enlarged. LYMPH NODES:There is no retroperitoneal nor paraaortic adenopathy. ABDOMINAL WALL: No evidence of significant anterior abdominal wall nor inguinal hernia. GI: Moderately increased fecal material throughout the colon. No bowel obstruction. There is no maciej dence of bowel obstruction, free air, nor abscess. 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 PELVIS: GI: No evidence of appendicitis.No evidence of sigmoid diverticulitis. LYMPH NODES: There is no intrapelvic nor inguinal adenopathy. REPRODUCTIVE: Normal size anteverted uterus. There is a possible polyp in the uterine endometrial ca vity. No abnormal adnexal masses. No free fluid in the cul-de-sac. URINARY BLADDER: No calculi nor obvious masses evident OSSEOUS: No fractures and no significant osseous lesions. IMPRESSION: 1. Somewhat increased amount of fecal material in the colon, possible element of constipation. No si gnificant diverticular disease. 2. No acute inflammatory process in either iliac fossa. 3. Possible 1 cm polyp in the endometrial cavity. Recommend follow-up transvaginal ultrasound study. 4. No obvious acute gallbladder pathology nor dilatation of the biliary given the symptoms here. If clinically indicated follow-up right upper quadrant ultrasound can be performed. 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 RADIATION DOSE DELIVERED: Total DLP DATA REPOSITORY: All CT scans at this facility are submitted to the National Radiology Data Registry (NRDR) Dose Index Registry (DIR) with the [employer] (ACR). RADIATION OPTIMIZATION: All CT scans at this facility use at least one of these dose optimization te chniques: automated exposure control; mA and/or kV adjustment per patient size (includes targeted exa ms where dose is matched to clinical indication); or iterative reconstruction.
[2023-08-02 19:04] VITALS: BP 151/80; PULSE 85; RESP 16; TEMP 36.4; O2SAT 98
--- NOTE | 2023-08-02 19:09 | W.ED.GENAD ---
Discharge Plan Disposition Patient Disposition: Home Condition: Stable Discharge Details Clinical Impression: Abdominal pain Primary Care Provider: Macario Bacon ED Provider: Radha Acevedo Home Meds and New Rx's Prescriptions: New ondansetron 4 mg tablet,disintegrating 4 mg PO Q8H PRN (Reason: nausea and vomiting) 4 Days Qty: 9 0RF Rx Instructions: Take 1 tablet up to 3 times daily as needed for nausea and vomiting 20 minutes prior to meals. No Action cholecalciferol (vitamin D3) [Vitamin D3] 25 mcg (1,000 unit) capsule 25 mcg PO DAILY epinephrine 0.3 mg/0.3 mL auto-injector 0.3 mg IM PRN lorazepam 0.5 mg tablet 0.5 mg PO PRN Discharge Instructions Instructions: Abdominal Pain (ED) Additional Instructions: No evidence of cholecystitis on CT, no evidence of gallstones. Follow up with primary care provider in 3-5 days. Return to ED sooner if any worsening or concerns. Increase oral fluids. Please take Tylenol or Ibuprofen with food every 4-6 hours as needed for pain and swelling. Referrals: Macario Bacon [Primary Care Provider] - 5 days HPI General Mode of arrival: ambulatory. Date/Time Provider Initiated Documentation: 08/02/23 19:02. Limitations to Documentation: no limitations. Information obtained by: patient, RN notes reviewed and old records reviewed. HPI Narrative: 38 year old female presents to the ED with RUQ abd pain which began acutely at 1400 today after eating. Associated with nausea, and worsening pain. She is breast feeding currently, denies any other associated symptoms. Related Data Home Medications Medication Instructions Recorded Confirmed cholecalciferol (vitamin D3) 25 25 mcg PO DAILY 08/08/19 08/02/23 mcg (1,000 unit) capsule (Vitamin D3) epinephrine 0.3 mg/0.3 mL 0.3 mg IM PRN 08/02/23 08/02/23 injection, auto-injector lorazepam 0.5 mg tablet 0.5 mg PO PRN 08/02/23 08/02/23 ondansetron 4 mg disintegrating 4 mg PO Q8H PRN nausea and 08/02/23 tablet vomiting 4 days #9 tabs Previous Rx's Medication Instructions Recorded ondansetron 4 mg disintegrating 4 mg PO Q8H PRN nausea and 08/02/23 tablet vomiting 4 days #9 tabs Allergies Allergy/AdvReac Type Severity Reaction Status Date / Time latex Allergy Severe hives Verified 08/02/23 19:23 adhesive tape Allergy Intermediate rash Verified 08/02/23 19:23 coffee (Coffea arabica) Allergy Mild flu like Unverified 08/02/23 19:23 symptoms nickel Allergy Skin Rash Verified 08/02/23 19:23 carrageenan AdvReac Intermediate flu like Unverified 08/02/23 19:23 symptoms gluten AdvReac Intermediate GI upset Verified 08/02/23 19:23 avocado AdvReac Mild GI upset Unverified 08/02/23 19:23 banana AdvReac Mild Anaphylaxis Unverified 08/02/23 19:23 marielle AdvReac Mild GI upset Unverified 08/02/23 19:23 tomato AdvReac Mild vomit Unverified 08/02/23 19:23 eggs Allergy Other (See Uncoded 08/02/23 19:23 Comment) dairy AdvReac Severe GI upset Uncoded 08/02/23 19:23 General Stated Complaint: Abd Prob MARY: 3 Review of Systems All systems reviewed & are unremarkable except as noted in HPI and below Gastrointestinal Gastrointestinal: Reports abdominal pain, Denies diarrhea, Reports nausea and Denies vomiting Exam Narrative Exam Narrative: Constitutional: Alert and oriented x3. Appears stated age. Normal body habitus. Head: Normocephalic, no trauma. Eyes: Pupils PERRL, Red reflex noted, EOM's intact. Eyelids symmetrical without lesions, discharge, or swelling. ENT: Bilateral TM's WNL, External ear normal to inspection, no mastoid TTP, swelling, or erythema, Nasal turbinates WNL, no nasal discharge. Normal dentition, Posterior pharynx WNL, no exudate. Chest: RRR, Normal S1, S2, distal pulses intact. Resp: Lungs clear to auscultation bilaterally, no wheezes, rales, or rhonchi. Abdomen: Soft, non-distended, Normoactive bowel sounds all 4 quads. Tenderness with RUQ palpation. Musculoskeletal: Normal gait, 5/5 strength to all four extremities. Skin: No suspicious rashes or lesions. Capillary refill less than 2 sec. Neurologic: Cranial nerves II-XII intact. Alert and oriented x 3. Motor: No deficits noted. Sensory: Intact bilaterally all 4 extremities. Reflexes: DTR's intact bilaterally.. Hematologic/Lymphatic: No ecchymosis, no lymphadenopathy. Course Vital Signs Vital signs: Vital Signs Temperature 36.4 C L 08/02/23 19:04 Pulse 85 08/02/23 19:04 Respiratory Rate 16 08/02/23 19:04 Blood Pressure 151/80 H 08/02/23 19:04 Pulse Oximetry 98 08/02/23 19:04 Temperature 36.4 C L 08/02/23 19:04 Temperature Source Skin 08/02/23 19:04 Pulse 85 08/02/23 19:04 Respiratory Rate 16 08/02/23 19:04 Respiratory Effort Normal, Non-Labored 08/02/23 19:07 Blood Pressure 151/80 H 08/02/23 19:04 Blood Pressure Position Sitting 08/02/23 19:04 Pulse Oximetry 98 08/02/23 19:04 Oxygen Delivery Method Room Air 08/02/23 19:04 Oxygen Flow Rate 0 08/02/23 19:04 Pain Level 8 08/02/23 19:04 Medical Decision Making 38 year old female presents to the ED with RUQ abd pain which began acutely at 1400 today after eating. Associated with nausea, and worsening pain. She is breast feeding currently, denies any other associated symptoms. Work up orderd including Cbc, CMP, lipase and CT abd pelvis. Labs are largely within normal limits, CT shows no acute abnormality no calcified gallstones or biliary dilatation. Discussed results with patient who verbalized understanding. Patient sent home with Meganan to go. Instructed to follow-up with PCP or return to the ER for any worsening. She verbalizes understanding. This text was generated using [employer] dictation system, please disregard any oddities of phrase or misspellings. Imaging Data Radiologic Study: Imaging: CT Scan Radiologist's impression: IMPRESSION: 1. Moderate retained fecal material in the colon. Otherwise, no acute bowel pathology demonstrated. 2. Suspected collapsing left ovarian corpus luteum, not well demonstrated, uncertain finding. No gross free pelvic fluid seen. 3. Gallbladder partially decompressed. No calcified gallstones or biliary dilatation. 4. 9 mm nodular finding along the margin of the endometrial cavity. Although not well evaluated by today's exam, an endometrial polyp or subendometrial leiomyoma could probably produce this appearance. Alternative pathology is not excluded. Thank you for allowing us to participate in the care of your patient. Dictated and Authenticated by: Manish Martin MD Lab Data Lab results reviewed: Yes I reviewed the patient's lab results. Labs: Laboratory Tests Range/Units 08/02/23 08/02/23 19:25 19:35 WBC (4.4-10.8) 10^3/uL 7.61 RBC (3.93-5.22) 10^6/uL 4.26 Hgb (11.2-15.7) g/dL 12.5 Hct (36.0-46.0) % 38.2 MCV (80-95) fL 90 MCH (27.0-33.0) pg 29.3 MCHC (32.0-36.0) % 32.7 RDW (11.7-14.6) % 12.8 Plt Count (130-400) 10^3/uL 179 MPV (8.0-11.0) fL 12.6 H Immature Gran % 0.3 Neutrophils % 63.1 Lymphocytes % 27.6 Monocytes % 7.4 Eosinophils % 1.1 Basophils % 0.5 Nucleated RBC % (0.0-0.3) % 0.0 Absolute Neutrophils (1.2-6.7) 10^3/uL 4.81 Absolute Lymphocytes (1.2-3.4) 10^3/uL 2.10 Absolute Monocytes (0.1-0.8) 10^3/uL 0.56 Absolute Eosinophils (0.0-0.7) 10^3/uL 0.08 Absolute Basophils (0.0-0.2) 10^3/uL 0.04 Sodium (136-145) mmol/L 139 Potassium (3.5-5.1) mmol/L 3.5 Chloride (98-107) mmol/L 102 Carbon Dioxide (21.0-32.0) mmol/L 24.0 Anion Gap (3-11) mmol/L 13.0 H BUN (7-18) mg/dL 18 Creatinine (0.55-1.02) mg/dL 0.9 Est GFR (CKD-EPI 2020) (mL/min/1.73m2) 83.40 Glucose (74-106) mg/dL 98 Calcium (8.5-10.1) mg/dL 8.8 Total Bilirubin (0.2-1.0) mg/dL 0.5 AST (15-37) U/L 18 ALT (14-59) U/L 22 Alkaline Phosphatase (46-116) U/L 107 Total Protein (6.4-8.2) g/dL 8.3 H Albumin (3.4-5.0) g/dL 4.2 Lipase (16-77) U/L 61 Urine Color (Yellow) Yellow Urine Clarity (Clear) Clear Urine pH (5-8) 5.5 Ur Specific [place] (1.005-1.025) 1.015 Urine Protein (Neg-Trace) mg/dL Negative Urine Ketones (Negative) mg/dL Negative Urine Blood (Negative) Negative Urine Nitrite (Negative) Negative Urine Bilirubin (Negative) Negative Urine Urobilinogen (Up to 0.2) mg/dL 0.2 Ur Leukocyte Esterase (Negative) Small H Urine RBC (0-2) HPF Negative Urine WBC (0-5) HPF 5-10 Ur Epithelial Cells (Negative) HPF Many Urine Crystals (Negative) HPF Negative Urine Bacteria (Negative) HPF Rare Urine Mucus (Negative) Negative Ur Culture Indicated? No/Sq. Contamination Urine Glucose (Negative) mg/dL Negative Quality:SDOH Health Related Social Needs: No Data to Display PFSH All Active Problems (Updated 08/02/23 @ 20:45 by Radha Acevedo NP) Abdominal pain (Acute) Postoperative state (Acute) Laparoscopic bilateral salpingectomy for sterilization 08/03/2021 Graves' disease (Chronic) Dx ? 2015. Rx with Methimazole 5mg/day.(Usual dose 30mg/day) TSH ok with current dose. Previous thyroid u/s: no cancerous nodules. 08/08/19. Change to PTU 50mg/day (usual dose 100mg/TID) Recheck TSH in 4w. Antibody testing: PTSD (post-traumatic stress disorder) (Acute) Anxiety associated with depression (Acute) Latex allergy (Acute) BRCA1 genetic carrier (Acute) Medical History PTSD (post-traumatic stress disorder) Per pt. stated the big thing is communication. Sterilization consult History of gestational diabetes mellitus (GDM) Normal spontaneous vaginal delivery Previous baby was small for gestational age Elevated glucose tolerance test Gestational diabetes Pelvic pain Hip pain At risk for depressed mood during period anxiety after third Allergy to banana Allergy to marielle fruit Gluten intolerance Lactose intolerance Rotator cuff arthropathy of right shoulder injury and PT 05/2019 Surgical History History of ankle surgery 2009 Hx of tonsillectomy 1989 Family History Father No problems noted. Mother Diabetes pre-diabetic Hypertension Maternal Grandmother Diabetes Type 2 Sister Arrhythmia heart ablation Aunt Breast cancer Pos. BRCA Several others in father's family pos for BRCA Social History Smoking/Tobacco Use Status: Former Tobacco Use Quit Date: 05/22/10 Tobacco: How many years used: 3 Quit status: has quit before Smoking risk assessment performed?: Yes Alcohol Intake: never Drug use: Rarely Substance use type: marijuana Household members: spouse, children and other Details: Irene-Wilber, tiym-mw-lopa dad. Housing: house Number of Children: 3 Education Level: other Details: [employer] current occupation: [employer] at [employer] Sexually active: Yes Do you feel safe at home: Yes Do you feel safe in your relationship?: Yes Female Reproductive History Menstrual Duration of menses: 3-5 days control method: none History History 7 Para 4 Hx # Term Pregnancies 4 Multiple births 0 Hx # Pregnancies 0 Ectopic pregnancies 0 AB induced 0 Hx Number of Living Children 4 AB spontaneous 2 Past Pregnancies Del. Date GA/Weeks # Preg Succ Route Wgt Sex Labor Lgth Anesthesia Location [facility] 09/28/05 38 No Yes vaginal 3316.894 g Male 28 [facility] 08/21/07 10/22/08 38 No Yes vaginal 3316.894 g Male 20 [facility] 08/22/11 02/16/13 40 No Yes vaginal 3005.049 g Female 8 hrs home , [place] 04/08/20 39 No Yes vaginal 2324.661 g Male [address] Anne Law CNM 06/10/22 38 No Yes vaginal 2789.877 g Male Delivery Date: 09/28/05 Last Updated by: Lea Mulkern, CNM Pitocin augmentation Delivery Date: 08/21/07 Last Updated by: Lea Law CNM SAB Delivery Date: 08/22/11 Last Updated by: Lea Law CNM SAB Delivery Date: 02/16/13 Last Updated by: Lea Law CNM Home , no complications Delivery Date: 04/08/20 Last Updated by: Lea Law CNM vaginal breech, Precipitous labor and . pt has had PTSD since this delivery
[2023-08-02 19:12] VITALS: BP 151/80; PULSE 85; RESP 16; TEMP 36.4; O2SAT 98
[2023-08-02 19:39] LABS: Bilirubin Negative (Negative); Blood Negative (Negative); Clarity Clear (Clear); Glucose Negative (Negative); Ketones Negative (Negative); Leukocyte Esterase Small (Negative); Nitrite Negative (Negative); Specific Gravity 1.015 (1.005-1.025); Urobilinogen 0.2 mg/dL (Up to 0.2); pH 5.5 (5-8)
[2023-08-02] MEDS: LORazepam 0.5 MG TAB PO (19:39)
[2023-08-02] MEDS: Ondansetron 4 MG/2 ML VIAL IVP (19:39)
[2023-08-02 19:41] LABS: Abs Immature Grans 0.02 10^3/uL (0.0-0.06); Absolute Basophil Count 0.04 10^3/uL (0.0-0.2); Absolute Eosinophil Count 0.08 10^3/uL (0.0-0.7); Absolute Monocyte Count 0.56 10^3/uL (0.1-0.8); Absolute Neutrophil Count 4.81 10^3/uL (1.2-6.7); Basophils % 0.5; Eosinophils % 1.1; HCT 38.2 % (36.0-46.0); HGB 12.5 g/dL (11.2-15.7); Immature Grans % 0.3; Lymphocytes % 27.6; MCH 29.3 pg (27.0-33.0); MCHC 32.7 % (32.0-36.0); MCV 90 fL (80-95); MPV 12.6 fL (8.0-11.0); Monocytes % 7.4; Neutrophils % 63.1; Platelet Count 179 10^3/uL (130-400); RBC 4.26 10^6/uL (3.93-5.22); RDW 12.8 % (11.7-14.6); RDW-SD 41.8 fL; WBC 7.61 10^3/uL (4.4-10.8)
[2023-08-02] MEDS: Normal Saline - Diluent 50 ML VIAL IJ (19:47)
[2023-08-02] MEDS: Omnipaque 350 MG/ML 100 ML BTL IJ (19:48)
[2023-08-02 19:56] LABS: Bacteria Rare HPF (Negative); C & S Indicated? No/Sq. Contamination; Crystals Negative HPF (Negative); Epithelial Cells Many HPF (Negative); Mucus Negative (Negative); RBC Negative HPF (0-2)
[2023-08-02 19:57] LABS: ALT 22 U/L (14-59); AST 18 U/L (15-37); Albumin 4.2 g/dL (3.4-5.0); Alkaline Phosphatase 107 U/L (46-116); BUN 18 mg/dL (7-18); Bilirubin, Total 0.5 mg/dL (0.2-1.0); CREATININE 0.9 mg/dL (0.55-1.02); Calcium 8.8 mg/dL (8.5-10.1); Chloride 102 mmol/L (98-107); Glucose 98 mg/dL (74-106); Lipase 61 U/L (16-77); Potassium 3.5 mmol/L (3.5-5.1); Sodium 139 mmol/L (136-145); Total Protein 8.3 g/dL (6.4-8.2)
--- NOTE | 2023-08-02 20:34 | DI.VRAD_ITS ---
PROCEDURE INFORMATION: Exam: CT Abdomen And Pelvis With Contrast Exam date and time: 08/02/2023 7:45 PM Age: 38 years old Clinical indication: Abdominal pain; Other: Ruq abd pain TECHNIQUE: Imaging protocol: Computed tomography of the abdomen and pelvis with contrast. Contrast material: OMNI 350; Contrast volume: 100 ml; Contrast route: INTRAVENOUS (IV); COMPARISON: US ABDOMEN LIMITED 10/19/2022 7:18 AM FINDINGS: Lungs: Lung bases clear. Liver: Normal appearing liver. Gallbladder and bile ducts: Gallbladder partially collapsed. No calcified gallstones seen. No biliary dilatation. Pancreas: Normal appearing pancreas. Spleen: Normal appearing spleen. Adrenal glands: Normal appearing adrenal glands. Kidneys and ureters: Normal appearing kidneys. No hydronephrosis. No obstructing ureteral stones. Stomach and bowel: No oral contrast. Stomach partially decompressed. No small bowel dilatation to suggest obstruction. Moderate retained fecal material in the colon. No evidence of diverticulitis or colitis. Appendix: Appendix partially obscured but normal in caliber and appearance through its visualized portion. Intraperitoneal space: No gross ascites or free air. Vasculature: Normal caliber abdominal aorta. Absent right-sided inferior vena cava inferior to the level of the renal veins. 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 Lymph nodes: Scattered small mesenteric lymph nodes, nonspecific. Urinary bladder: Normal appearing urinary bladder. Reproductive: Anteverted uterus, normal in size. 9 mm nodular finding along the margin of the endometrial cavity on image 69 of series 4 and 41 of series 6, not well evaluated by the CT exam. Ovaries partially obscured but normal in size. Collapsing left ovarian corpus luteum suggested on image fifty-four of series 6, not well demonstrated. Bones/joints: No acute fracture seen among the bones of the abdomen or pelvis. Soft tissues: Mild diastasis recti.Tiny fat-containing ventral hernia at the umbilicus, doubtful clinical significance. IMPRESSION: 1. Moderate retained fecal material in the colon. Otherwise, no acute bowel pathology demonstrated. 2. Suspected collapsing left ovarian corpus luteum, not well demonstrated, uncertain finding. No gross free pelvic fluid seen. 3. Gallbladder partially decompressed. No calcified gallstones or biliary dilatation. 4. 9 mm nodular finding along the margin of the endometrial cavity. Although not well evaluated by today's exam, an endometrial polyp or subendometrial leiomyoma could probably produce this appearance. Alternative pathology is not excluded. Dictated and Authenticated by: Manish Martin MD. Ordering:JAYLAN Garcia MD
[2023-08-02 21:02] VITALS: BP 113/64; PULSE 75; RESP 16; O2SAT 99
[2023-08-02] MEDS: Ondansetron O.D.T. 4 MG TABEF, 3 TABS/BTL PO (21:02)
== END 2023-08-02 21:04 | disposition home or self-care (01) ==
PROVIDERS: Emergency Provider Registered Nurse Emergency; PCP Naturopath
DX: R10.11 Right upper quadrant pain (principal)
CPT/HCPCS: 36415; 80053; 83690; 99285; 74177; 81003; 81015; 85025; 99283; J2405; J3490

== ENCOUNTER → 2023-09-12 03:36 | Outpatient (CLI) | payer OTHER, MEDICAID, SELFPAY ==
--- NOTE | 2023-09-12 | DI.NM_ITS ---
Exam(s) NM HEPATOBILIARY CCK GRP EXAM: NM HEPATOBILIARY CCK GRP CLINICAL HISTORY: POSTPRANDIAL RUQ PAIN R10.11EVAL GALLBLADDER FUNCTION. TECHNIQUE: Injected dose: 5 mCi Tc-99 mebrofenin Initial dynamic images: 60 minutes Post-Gallbladder fillin.02 mcg/kg CCK intravenously over a 15min infusion. Addition images: 20 minute dynamic during CCK administration. COMPARISON: US US ABDOMEN LIMITED from 08/04/2023 was reviewed. FINDINGS: There is normal uptake and excretion of radiopharmaceutical by the liver and rapid excretion into the CBD (which is not dilated). There is activity seen within the gallbladder lumen starting at 48 minut es post injection. CCK infusion reveals a decreased gallbladder ejection fraction of 13 percent (normal is greater than 35 percent). IMPRESSION: Abnormal study. Although there is no obstruction of the cystic duct, there is decreased gallbladder e jection fraction response to CCK infusion. This is consistent with an element of gallbladder dysfunct ion. In addition, I note that although the gallbladder did fill with contrast, this took longer than expec ben (48 minutes). Usually the gallbladder starts felling within 15 minutes.
== END ==
PROVIDERS: PCP Naturopath; Visit Provider Nurse Practitioner Family
DX: R93.2 Abnormal findings on diagnostic imaging of liver and biliary tract (principal)
CPT/HCPCS: 78227

== ENCOUNTER 2023-09-29 06:24 | Day surgery (SDC) | payer OTHER, MEDICAID, SELFPAY ==
--- NOTE | 2023-09-28 16:18 | PDOC.DSDIS_ITS ---
Date of service: 09/29/23 Time of Service: 11:06 Discharge Plan Disposition Patient Disposition: Home Condition: Good Discharge Details Reason For Visit: Laparoscopic cholecystectomy Attending Provider: Js Armendariz Primary Care Provider: Macario Bacon Home Meds and New Rx's Prescriptions: New oxycodone 5 mg tablet 5 mg PO Q8H PRNQty: 9 0RF Rx Instructions: Take 1 tablet by mouth up to every 8 hours if needed for more severe pain. Do not drive while using this medication. Continued cholecalciferol (vitamin D3) [Vitamin D3] 25 mcg (1,000 unit) capsule 25 mcg PO DAILY buspirone 15 mg tablet 15 mg PO BID epinephrine 0.3 mg/0.3 mL auto-injector 0.3 mg IM PRN lorazepam 0.5 mg tablet 0.5 mg PO PRN Discharge Instructions Instructions: Laparoscopic Cholecystectomy (DC) Additional Instructions: Anita, we were able to remove your gallbladder today just like we talked about without any issues. Everything went very smoothly. Hopefully you will be comfortable in the next few days. Like we talked about beforehand, expect to have some pain around the incision sites. He may also experience some bruising there as well. That is extremely common. You should be up and moving around a little bit each day, walking is great exercise will help you get back to your baseline rapidly. 1. Resume all of your regular medications. 2. Use heating pads and ice packs over the incisions as needed for pain 3. Alternate [id number] Tylenol and ibuprofen every 6 hours for the first 2 days. Then use them as needed. Use oxycodone if needed for more severe pain 4. Leave the Band-Aids in place for 24 hours, then remove. You can shower with warm soapy water tomorrow. Put a little dab of Neosporin on your bellybutton incision, and keep Covered with a Larger Band-Aid. Repeat This Every Day for 5 Days. The Upper Incision Sites Can Be Left Open to the Air Assuming They Are Dry, and Your Clothing Does Not Bother Them. 5. No soaking or tub baths until I see you in the office. 6. No heavy lifting until I see you in the office. 7.Call the office (or go directly to the emergency room after hours) if you noti ce any of the following: Develop chills (warm to touch), or if you have a thermometer and your temperature is above 101 Difficulty breathing or difficultly swallowing Persistent vomiting Any bleeding ? exceeding one tablespoon 8. Call your physician if the site where your intravenous was started becomes red, swollen, painful, and warm to touch. Activity:: No heavy lifting Remove Dressings/Wound Care:: 24 hours Shower/Bathe:: 24 hours Diet:: As Tolerated Discharge Orders Discharge Orders: Discharge Order (Routine); Ordered 09/28/23 Ordered By: Js Armendariz DS: Diagnosis Discharge Diagnosis (1) Biliary dyskinesia: Status: Acute Asessment and Plan: s/p lap mireya, outpatient post operative follow up
--- NOTE | 2023-09-28 16:20 | ROE_ITS ---
Date of service: 09/29/23 Time of Service: 11:10 Operative Note Operative Note DATE OF PROCEDURE: 09/29/23 PRE-OP DIAGNOSIS: Biliary dyskinesia POST-OP DIAGNOSIS: same PROCEDURE: Laparoscopic cholecystectomy SURGEON: Js Armendariz BIOMEDICAL SCIENTIST: Heidi Thomas ANESTHESIA TYPE: Local By Surgeon and General LMA/ETT Refer to Anesthesia Record ESTIMATED BLOOD LOSS: 10 PATHOLOGY: other (Gallbladder) COMPLICATIONS: None Patient was transported to: PACU Patient's condition: stable Indications: Anita is a 38-year-old woman with intractable biliary dyskinesia. Findings: Uncomplicated cholecystectomy Procedure Description: After satisfactory induction of general anesthesia, I prepped and draped the abdomen in usual fashion. Next, I began with a periumbilical incision. I dissected down to the fascia and elevated it with Edwardo clamps. I incised it sharply. Next, I passed a 12 mm operating port in the umbilical site. I secured it to the fascia with 0 Vicryl stitches. I then insufflated the peritoneal cavity. Next I inserted a 5 mm 30 degree scope and examined the underlying viscera. There was no evidence of injury created upon entry. I then placed the patient in some reverse Trendelenburg and left side down positioning. Then, with the assistance of the laparoscope, I used local anesthetic to anesthetize the midepigastric and 2 right upper quadrant port sites. Under the vision of the laparoscope, I passed 3 more 5 mm ports. I then grasped the gallbladder fundus and elevated cephalad. I began by dissecting the gallbladder infundibulum. With the assistance of indocyanine green visualization, I worked in a lateral to medial fashion. Once I skeletonized the cystic duct and cystic artery, with a satisfactory critical view of safety, I doubly clipped and divided them. I then used electrocautery to dissect the gallbladder off the gallbladder fossa. I passed the gallbladder into an Endo Catch bag and removed it by way of the umbilical site. I examined the surgical field. It was hemostatic. I then removed the 5 mm ports under the vision of the laparoscope. Finally, I removed the umbilical port site and closed the fascia with Vicryl stitches. Sites were irrigated, and the skin was closed with subcuticular stitches. Bandages were applied, patient was awakened from anesthesia, and transferred to the recovery unit.
[2023-09-29] VITALS (10 sets, daily range): BP systolic 107–138; BP diastolic 59–87; PULSE 71–97; RESP 14–24; TEMP 36.3–36.7; O2SAT 96–100; BMI 31.6
[2023-09-29] MEDS: Celecoxib 200 MG CAP PO (07:01)
[2023-09-29] MEDS: Gabapentin 300 MG CAP 600 MG PO (07:01)
[2023-09-29] MEDS: Acetaminophen 500 MG TAB 1000 MG PO ×2 (07:01→15:31)
[2023-09-29] MEDS: Lactated Ringers 1,000 ML 80 ML IV (07:54)
[2023-09-29] MEDS: Indocyanine green 25 MG VIAL 5 MG IVP (07:56)
--- NOTE | 2023-09-29 08:47 | W.ANESPRE ---
General Info Date of Service Date Performed: 09/29/23 Height: 5 ft 7 in Weight: 91.5 kg Body Mass Index (BMI): 31.6 Surgical Procedure: Operation Date: 09/29/23 09:40 Proposed Procedure Side Surgeon p Cholecystectomy Laparoscopic Js Armendariz MD Meds Allergies and Home Medications Allergies Allergy/AdvReac Type Severity Reaction Status Date / Time latex Allergy Severe hives Verified 09/29/23 06:32 adhesive tape Allergy Intermediate rash Verified 09/29/23 06:32 coffee (Coffea arabica) Allergy Mild flu like Verified 09/29/23 06:32 symptoms nickel Allergy Skin Rash Verified 09/29/23 06:32 carrageenan AdvReac Intermediate flu like Verified 09/29/23 06:32 symptoms gluten AdvReac Intermediate GI upset Verified 09/29/23 06:32 avocado AdvReac Mild GI upset Verified 09/29/23 06:32 banana AdvReac Mild Anaphylaxis Verified 09/29/23 06:32 marielle AdvReac Mild GI upset Verified 09/29/23 06:32 tomato AdvReac Mild vomit Verified 09/29/23 06:32 eggs Allergy Other (See Uncoded 09/29/23 06:32 Comment) dairy AdvReac Severe GI upset Uncoded 09/29/23 06:32 Home Medication Medication Instructions Recorded cholecalciferol (vitamin D3) 25 25 mcg PO DAILY 08/08/19 mcg (1,000 unit) capsule (Vitamin D3) epinephrine 0.3 mg/0.3 mL 0.3 mg IM PRN 08/02/23 injection, auto-injector lorazepam 0.5 mg tablet 0.5 mg PO PRN 08/02/23 buspirone 15 mg tablet 15 mg PO BID 09/27/23 Current Visit Medications: Current Medications Generic Name Dose Route Start Last Admin Trade Name Freq PRN Reason Stop Dose Admin Acetaminophen 1,000 mg 09/29/23 06:00 09/29/23 07:01 Acetaminophen 500 Mg Tab PO 09/29/23 23:59 1,000 mg PREOP ADRI Administration Celecoxib 200 mg 09/29/23 06:00 09/29/23 07:01 Celecoxib 200 Mg Cap PO 09/29/23 23:59 200 mg PREOP ADRI Administration Gabapentin 600 mg 09/29/23 06:00 09/29/23 07:01 Gabapentin 300 Mg Cap PO 09/29/23 23:59 600 mg PREOP ADRI Administration Ringer's Solution 1,000 mls @ 80 mls/hr 09/29/23 06:00 09/29/23 07:54 IV 09/29/23 23:59 80 mls/hr INFUSION ADRI Administration Cefazolin Sodium/Dextrose 2 gm in 50 mls @ 100 mls/hr 09/29/23 06:00 Ancef Duplex IVPB 09/29/23 23:59 PREOP ADRI IV Miscellaneous Supplies 1 each 09/29/23 06:00 Iv Access IV 09/29/23 23:59 DIRECTED ADRI Indocyanine Green 5 mg 09/29/23 06:00 09/29/23 07:56 Indocyanine Green 25 Mg Vial IVP 09/29/23 23:59 5 mg DIRECTED ADRI Administration Sodium Chloride 0 ml 09/29/23 06:00 Normal Saline Flush 10 Ml Syr IV 09/29/23 23:59 PRN PRN Sodium Chloride 0 ml 09/29/23 06:00 Normal Saline 10 Ml Vial IJ 09/29/23 23:59 DIRECTED PRN Sterile Water 0 ml 09/29/23 06:00 Water,Injection,Sterile 10 Ml Vial IJ 09/29/23 23:59 DIRECTED PRN Tramadol HCl 50 mg 09/28/23 16:20 Tramadol 50 Mg Tab PO 10/28/23 16:19 Q6H PRN PRN Pain PFSH Active Problems Active Problems: Problem Status Onset Code Biliary dyskinesia K82.8 Postoperative state Z98.890 Graves' disease E05.00 PTSD (post-traumatic stress disorder) F43.10 Anxiety associated with depression F41.8 Latex allergy Z91.040 BRCA1 genetic carrier Z15.01, Z15.09 Medical History Medical History RUQ pain PTSD (post-traumatic stress disorder) Per pt. stated the big thing is communication. Sterilization consult History of gestational diabetes mellitus (GDM) Normal spontaneous vaginal delivery Previous baby was small for gestational age Elevated glucose tolerance test Gestational diabetes Pelvic pain Hip pain At risk for depressed mood during period anxiety after third Allergy to banana Allergy to marielle fruit Gluten intolerance Lactose intolerance Rotator cuff arthropathy of right shoulder injury and PT 05/2019 Medical History Comments:: Per pt. states she wakes up emotional Surgical History Surgical History History of ankle surgery 2010 Hx of tonsillectomy 1989 Tobacco Smoking/Tobacco Use Status: Former Tobacco Use Passive smoking exposure: No Alcohol Alcohol Intake: never Substance Use Substance use: Rarely Substance use type: marijuana Prental History History 7 Para 4 Hx # Term Pregnancies 4 Multiple births 0 Hx # Pregnancies 0 Ectopic pregnancies 0 AB induced 0 Hx Number of Living Children 4 AB spontaneous 2 Past Pregnancies Del. Date GA/Weeks # Preg Succ Route Wgt Sex Labor Lgth Anesthesia Location [facility] 09/28/05 38 No Yes vaginal 3316.894 g Male 28 [facility] 08/21/07 10/22/08 38 No Yes vaginal 3316.894 g Male 20 [facility] 08/22/11 02/16/13 40 No Yes vaginal 3005.049 g Female 8 hrs home , [place] 04/08/20 39 No Yes vaginal 2324.661 g Male [address] Ozuna and Sheree Law CNM 06/10/22 38 No Yes vaginal 2789.877 g Male Delivery Date: 09/28/05 Last Updated by: Lea Law CNM Pitocin augmentation Delivery Date: 08/21/07 Last Updated by: Lea Law CNM SAB Delivery Date: 08/22/11 Last Updated by: Lea Law CNM SAB Delivery Date: 02/16/13 Last Updated by: Lea Law CNM Home , no complications Delivery Date: 04/08/20 Last Updated by: Lea Law CNM vaginal breech, Precipitous labor and . pt has had PTSD since this delivery Vital Signs and Lab Results Vital Signs Most Recent Vital Signs in EMR: Most Recent Vital Signs Temp Pulse Resp BP Pulse Ox 36.3 C L 80 16 121/59 L 98 09/29/23 06:33 09/29/23 06:33 09/29/23 06:33 09/29/23 06:33 09/29/23 06:33 Point of Care Results Point of Care Results: POC- Test(urine) Negative 09/29/23 06:44 Lab Results Blood Type / Crossmatch: No Data to Display Complete Blood Count: No Data to Display Complete Metabolic Panel: No Data to Display Liver Function Panel: No Data to Display Coagulation Panel: No Data to Display Cardiac Panel: No Data to Display Arterial Blood Gas: No Data to Display Venous Blood Gas: No Data to Display Pancreas Panel: No Data to Display Thyroid Panel: No Data to Display Infectious Disease: No Data to Display Blood Cultures: No Data to Display Toxicology Panel: No Data to Display Panel: No Data to Display Anesthesia Assessment and Plan Anesthesia History Personal History: No History of Anesthesia Complications Family History: No Family History of Anesthesia Complications Exercise Tolerance Exercise Tolerance: Metabolic Equivalents>4 Cardiac & Pulmonary Exam Cardiac Exam: Normal S1/S2 Heart Sounds Pulmonary Exam: Clear Bilateral Breath Sounds Implantable Cardiac Device Does patient have a Pacemaker or an ICD?: No Airway Exam Known Difficult Airway: No Mallampati Class: 2 Mouth Opening: Normal (> 3cm) Thyromental Distance: Greater than 3 cm Neck Range of Motion: Full ROM Neck Circumference: Normal Teeth Condition: Normal Dentition ASA Classification ASA Score: ASA 2 Emergency Case?: No NPO Status NPO Status: NPO Clears >2 hours, Solids >8 hours Status Status: Negative HCG Anesthesia Plan Resuscitation Status: Full Code Anesthesia Technique: General Anesthesia Airway Planned: Endotracheal Tube Monitors Used: Standard Monitors Preoperative Comments:: 38 yo female for lap mireya. Sig PMHx: Graves, PTSD/anxiety. former smoker. Previous Anes: - tubal, easy mask, shen 2 grade 1. Very anxious today due to previous medical trauma/PTSD. Requesting preop sedation, loraz ordered.
[2023-09-29] MEDS: LORazepam 2 MG/ML VIAL 0.5 MG IVP (08:54)
[2023-09-29] MEDS: ceFAZolin 2 GM/50 ML BAG IVPB (10:20)
--- NOTE | 2023-09-29 11:00 | GB_PTH ---
PATIENT: Anita Gabriel LOC: [facility] U#:[id number] AGE/SX: 38/F ROOM: RE09/29/[address]: Js Armendariz MD : 1985 BED: DIS: 09/29/2023 SPEC #: [id number] RECD: 09/29/23 12:54 STATUS: TREMAYNE REQ #: [id number] CAMERON: 09/29/23 11:[address]: Js Armendariz DEPT: Surgical Specimen RECD BY: Nazia Victoria ENTERED: 09/29/23 12:55 SP TYPE: GB OTHR DR: Macario Bacno Tissues: 1 - GALLBLADDER Procedures: GROSS AND MICRO LEVEL 3 Comments: [id number]
[2023-09-29] MEDS: Bupivacaine 0.25% Pres-Free 30 ML VIAL (11:10)
[2023-09-29] MEDS: fentaNYL 100 MCG/2 ML VIAL IVP ×2 (11:37→11:48)
[2023-09-29] MEDS: traMADol 50 MG TAB PO (13:14)
--- NOTE | 2023-09-29 14:03 | W.ANESPOSTOP ---
Postoperative Evaluation Date, Time and Location Date Performed: 09/29/23 Time Performed: 14:03 Patient Location: Day Surgery Unit Vital Signs Most Recent Imported Vital Signs: Most Recent Vital Signs Temp Pulse Resp BP Pulse Ox 36.7 C 77 14 120/69 100 09/29/23 13:08 09/29/23 13:08 09/29/23 13:08 09/29/23 13:08 09/29/23 13:08 Pain Score Most Recent Pain Score: Most Recent Pain Score Pain Level 4 09/29/23 13:08 Assessment Mental Status: Awake (Alert & Oriented to Patient Baseline) Airway and Respiratory Function: Patent airway with normal (patient baseline) respiratory exam Cardiovascular Function: Hemodynamically Stable Hydration Status: Adequately Hydrated Nausea & Vomiting: No Nausea or Vomiting Pain: Pain is tolerable per patient Peripheral Nerve Block: Patient did not receive a nerve block
== END 2023-09-29 15:55 | disposition home or self-care (01) ==
LOC: SUR 06:25
PROVIDERS: PCP Naturopath; Visit Provider Surgery
PROC: 0FT44ZZ Resection of Gallbladder, Percutaneous Endoscopic Approach (ICD-10-PCS; CPT 47562; principal; 2023-09-29 09:30)
DX: K82.4 Cholesterolosis of gallbladder (principal); Z87.891 Personal history of nicotine dependence; E05.00 Thyrotoxicosis with diffuse goiter without thyrotoxic crisis or storm
CPT/HCPCS: 47562; 81025; 88304; J0665; J0690; J1100; J1885; J2001; J2060; J2250; J2405; J2704; J3010

== ENCOUNTER 2024-03-22 15:28 | Outpatient (CLI) | payer OTHER, MEDICAID, SELFPAY ==
[2024-03-22 23:36] LABS: HIV-1/2 Ag & Ab Screen Negative (Negative)
[2024-03-25 10:58] LABS: Syphilis Serology (RPR) Negative (Negative)
== END 2024-03-22 15:29 | disposition home or self-care (01) ==
LOC: LBO 15:31
PROVIDERS: PCP Naturopath; Visit Provider Naturopath
DX: Z11.3 Encounter for screening for infections with a predominantly sexual mode of transmission (principal); B37.2 Candidiasis of skin and nail
CPT/HCPCS: 36415; 87389; 86592

== ENCOUNTER 2024-03-22 16:07 | Outpatient (REF) | payer OTHER, MEDICAID, SELFPAY ==
[2024-03-25 12:04] LABS: Chlamydia Result Negative (Negative); GC Result Negative (Negative)
== END 2024-03-22 16:08 | disposition home or self-care (01) ==
LOC: LBN 16:07
PROVIDERS: PCP Naturopath; Visit Provider Naturopath
DX: Z11.3 Encounter for screening for infections with a predominantly sexual mode of transmission (principal); B37.2 Candidiasis of skin and nail
CPT/HCPCS: 87491; 87591

== ENCOUNTER 2024-03-30 11:07 | Outpatient (CLI) | payer OTHER, MEDICAID, SELFPAY ==
--- NOTE | 2024-03-30 11:37 | DI.RAD_ITS ---
Exam(s) XR FINGER RT MIDDLE EXAM: XR FINGER RT MIDDLE CLINICAL HISTORY: eval fx. TECHNIQUE: 2D digital imaging was performed of the right finger. Three views were obtained. PA/AP, oblique, and lateral views were obtained. COMPARISON: No exams were available for comparison FINDINGS: BONES: No acute fracture is present. No bony destructive lesion is seen. JOINTS: No dislocation present. SOFT TISSUE: There is soft tissue swelling of the middle finger. No soft tissue gas or foreign body is identified. IMPRESSION: No evidence of acute fracture or dislocation. DATA REPOSITORY: RADIATION DOSE DELIVERED:
--- NOTE | 2024-03-30 11:53 | DI.VRAD_ITS ---
PROCEDURE INFORMATION: Exam: XR Right Finger(s) Exam date and time: 03/30/2024 11:31 AM Age: 38 years old Clinical indication: Pain; Finger(s); Right TECHNIQUE: Imaging protocol: Radiologic exam of the right fingers. Views: Minimum 2 views. COMPARISON: No relevant prior studies available. FINDINGS: Bones/joints: No acute fracture or dislocation. No bony erosion. Joint spaces appear maintained. Soft tissues: Middle finger swelling adjacent to the PIP joint. IMPRESSION: Soft tissue swelling of the middle finger adjacent to the PIP joint. No associated bony abnormality. Dictated and Authenticated by: Michael Vaughan MD. Ordering:MARANDA Gracia MD
== END 2024-03-30 11:27 ==
PROVIDERS: PCP Naturopath; Visit Provider Nurse Practitioner Family
DX: M79.644 Pain in right finger(s) (principal)
CPT/HCPCS: 73140

== ENCOUNTER 2025-01-28 15:15 | Outpatient (REF) | payer OTHER, MEDICAID, SELFPAY ==
[2025-01-29 12:34] LABS: Chlamydia Result Negative (Negative); GC Result Negative (Negative)
== END 2025-01-28 15:16 | disposition home or self-care (01) ==
LOC: LBN 15:15
PROVIDERS: PCP Naturopath; Visit Provider Obstetrics & Gynecology
DX: Z11.3 Encounter for screening for infections with a predominantly sexual mode of transmission (principal); N76.0 Acute vaginitis; B96.89 Other specified bacterial agents as the cause of diseases classified elsewhere
CPT/HCPCS: 87491; 87591; 87480; 87510; 87660

== ENCOUNTER 2025-03-07 12:36 | Outpatient (REF) | payer OTHER, MEDICAID, SELFPAY | END 2025-03-07 12:37 | disposition home or self-care (01) | LOC: LBN 12:36 | PROVIDERS: PCP Naturopath; Visit Provider Physician Assistant | DX: N39.0 Urinary tract infection, site not specified (principal) | CPT/HCPCS: 87077; 87086; 87186 ==